=== PATIENT | male | born 1965 | race Caucasian/White ===

== ENCOUNTER 2017-01-23 17:30 | Inpatient (IN) ==
--- NOTE | 2017-01-23 18:00 | EKG Report ---
Test Performed on : 01/23/2017 5:53:23 PM Test Reason : withdrawal Blood Pressure : / mmHG Vent. Rate : 092 BPM Atrial Rate : 092 BPM P-R Int : 156 ms QRS Dur : 088 ms QT Int : 362 ms P-R-T Axes : 072 034 071 degrees QTc Int : 447 ms Normal sinus rhythm. Moderate voltage criteria for LVH, may be normal variant Borderline ECG When compared with ECG of 23-JAN-2017 17:47, (Unconfirmed) premature supraventricular complexes. are no longer present QRS duration has increased ST no longer depressed in Inferior leads ST elevation now present in Anterolateral leads Nonspecific T wave abnormality no longer evident in Inferior leads Nonspecific T wave abnormality no longer evident in Anterolateral leads Unconfirmed Result
--- NOTE | 2017-01-23 18:03 | ED EKG INTERP ---
This chart was entered by Rama Heredia Scribe, acting as scribe for Nirav Hawk MD. EKG Interpretation - EKG Time of EKG reading by physician:: 17:53 EKG Read and Signed by:: Nirav Hawk EKG Interpretation (*Must complete 3 of following elements*): Abnormal Rate: 92 (moderate voltage criteria for LVH, may be normal variant) Rhythm: NSR This chart was documented by the indicated scribe, (Rama Heredia Scribe) and accurately reflects the services I performed and decisions made by , Nirav Spann MD, as attested by the provider's signature.
[2017-01-23 18:04] LABS: MANUAL DIFF NEEDED? NO
[2017-01-23 18:09] LABS: BASO% 0.1 % (0.0-0.8); HEMATOCRIT 37.1 % (42.0-52.0); HEMOGLOBIN 13.8 g/dL (14.0-18.0); IMM GRAN# 0.08 X1000 (0.0-0.04); IMM GRAN% 0.8 % (0.0-0.5); LYMPH# 1.37 X1000 (1.2-3.4); MCH 33.2 PG (27-31); MCHC 37.2 g/dL (33-37); MCV 89.2 FL (81-99); MONO# 1.34 X1000 (0.11-0.59); MONO% 13.7 % (1.7-9.3); MPV 10.6 FL (7.4-10.4); NEUT% 70.4 % (42.2-75.2); PLT 160 X1000 (130-400); RBC 4.16 XMIL (4.7-6.1)
[2017-01-23] MEDS ORDERED: M.V.I.-12 10 ML, FOLIC ACID 1 MG, MAGNESIUM SULFATE 1 GM, THIAMINE 100 MG in NS 1,000 ML IV ONE (18:21)
[2017-01-23 18:40] LABS: AGAP 22; ALBUMIN 4.1 g/dL (3.5-5.0); ALKALINE PHOSPHATASE 56 U/L (32-122); AMYLASE 28 U/L (20-200); BUN 8 mg/dL (8-22); CALCIUM 9.2 mg/dL (8.8-10.2); CHLORIDE 74 mmol/L (98-107); COSMO 229; GOT 68 U/L (10-34); GPT 47 U/L (10-44); LIPASE 18 U/L (13-60); MAGNESIUM 1.5 mg/dL (1.5-2.7); POTASSIUM 3.3 mmol/L (3.5-5.1); SODIUM 114 mmol/L (136-145); TCO2 18 mmol/L (25-35); TOTAL PROTEIN 7.1 g/dL (6.3-8.3)
--- NOTE | 2017-01-23 19:29 | PROVIDER DOCUMENTATION ---
This chart was entered by Rama Heredia Scribe, acting as scribe for Nirav Hawk MD. [id number] Abuse/Overdose - General Chief Complaint: Withdrawals Stated Complaint: SEIZURES/WITHDRAWALS Time Seen by Provider: 01/23/17 17:59 Source: patient Allergies/Adverse Reactions: Allergies Allergy/AdvReac Type Severity Reaction Status Date / Time No Known Allergies Allergy Verified 09/08/16 15:55 Home Medications: Home Medication List Medication Instructions Recorded Confirmed Last Taken Type Folic Acid 1 mg PO DAILY #30 tablet 07/08/16 09/08/16 Unknown Rx Acetaminophen [Tylenol] 650 mg PO Q6H PRN PRN #0 tablet 09/11/16 Unknown Rx Lamotrigine [Lamictal] 200 mg PO BID #60 tablet 09/11/16 Unknown Rx Metoprolol Succinate E.r. [Toprol 25 mg PO DAILY #90 tablet 09/11/16 Unknown Rx Xl] - History of Present Illness-Drug/Alcohol Nature of Presenting Problem: pt is a 51 year old male who came to the ED with a cc of ETOH withdrawal. Pt would not speak to Dr. Hawk. Pt family reports that the pt normally drinks 12 beers a day, but has not drank since Thursday. pt family reports that he has been having seizures since Thursday. This episode of drinking or use began:: 2 days ago Severity: reports: moderate Situational problems related to:: reports: N/A Psychiatric Complaints: reports: denies symptoms - Substance Abuse Substance Use: reports: alcohol - Alcohol Abuse Usually drinks:: daily Usual alcohol intake amount?: 12 beers Review of Systems - Adult - REVIEW OF SYSTEMS - ADULT Constitutional: denies: chills, fever Eyes: reports: no symptoms reported Ears, Nose, Mouth & Throat: reports: no symptoms reported Cardiovascular: reports: no symptoms reported Respiratory: reports: no symptoms reported Gastrointestinal: denies: diarrhea, nausea, vomiting Genitourinary: reports: no symptoms reported Musculoskeletal: reports: no symptoms reported Integumentary: reports: no symptoms reported Neurological: reports: seizure. denies: ataxia, numbness Psychiatric: reports: alcohol/drug dependence. denies: depression, suicidal thoughts Endocrine: reports: no symptoms reported Hematologic/Lymphatic: reports: no symptoms reported Allergic/Immunologic: reports: no symptoms reported All Other Systems: Reviewed and Negative Past History - Adult - PAST MEDICAL HISTORY-ADULT Review of Records: reports: Nursing Assessment Review Major Childhood Illnesses: reports: denies history Cardiovascular: reports: CAD, HTN Respiratory: reports: denies history Gastrointestinal: reports: GERD Obstetrical/Gynecological: reports: denies history Genitourinary: reports: denies history Musculoskeletal: reports: denies history Neurological: reports: Seizures/Epilepsy Psychiatric: reports: depression, other (alcoholism) Endocrine/Immune: reports: denies history Other Conditions: reports: denies history - PRIOR SURGERIES/PROCEDURES Surgical/Procedure History: reports: other (ulcer) - PRIOR HOSPITALIZATIONS Prior Hospitalizations: reports: none - IMMUNIZATION STATUS Childhood Immunizations: See Nurse Assessment Flu Vaccine: See Nurse Assessment - FAMILY HISTORY Family History: reviewed, not pertinent Physical Exam-General - PHYSICAL EXAM-ADULT Initial Vital Signs Reviewed: Yes - CONSTITUTIONAL General Appearance: lethargic, other (was not responding to questions) - EYES Eyes: PERRL/EOMI - HEAD, EARS, NOSE, MOUTH & THROAT HENMT: normocephalic/atraumatic, moist mucous membranes - NECK Neck: non-tender - RESPIRATORY Respiratory: chest non-tender, lungs clear - CARDIOVASCULAR Cardiovascular: tachycardia - GASTROINTESTINAL (ABDOMEN) Abdominal Exam: normal bowel sounds, non tender - MUSCULOSKELETAL Back Exam: normal inspection - SKIN Integumentary: normal color, normal turgor - NEUROLOGIC Neurologic: grossly normal - PSYCHIATRIC Psych/Mental Status: disoriented x 3 Progress - PLAN OF CARE/RESULTS Progress/Plan/Lab Results: Vital Signs - 8 hr 01/23/17 17:36 Temperature 99 F Pulse Rate 95 H Respiratory Rate 19 Blood Pressure 167/90 O2 Sat by Pulse Oximetry 97 Laboratory Results - last 24 hr 01/23/17 01/23/17 01/23/17 17:58 17:58 17:58 WBC 9.81 RBC 4.16 L Hgb 13.8 L Hct 37.1 L MCV 89.2 MCH 33.2 H MCHC 37.2 H RDW Std Deviation 12.8 Plt Count 160 MPV 10.6 H Immature Gran % (Auto) 0.8 H Neut % (Auto) 70.4 Lymph % (Auto) 14.0 L [place] % (Auto) 13.7 H Eos % (Auto) 1.0 Baso % (Auto) 0.1 Immature Gran # (Auto) 0.08 H Neut # (Auto) 6.91 H Lymph # (Auto) 1.37 [place] # (Auto) 1.34 H Eos # (Auto) 0.10 Baso # (Auto) 0.01 Sodium 114 L* Potassium 3.3 L Chloride 74 L Carbon Dioxide 18 L Anion Gap 22 BUN 8 Creatinine 0.6 L Estimated GFR/1.73 m2 > 60 BUN/Creatinine Ratio 13 Glucose 91 Calculated Osmolality 229 Calcium 9.2 Magnesium 1.5 Total Bilirubin 2.20 H AST 68 H ALT 47 H Alkaline Phosphatase 56 Ammonia Total Protein 7.1 Albumin 4.1 Globulin 3.0 Albumin/Globulin Ratio 1.0 Amylase 28 Lipase 18 Plasma/Serum Ethyl Alc 01/23/17 18:35 WBC RBC Hgb Hct MCV MCH MCHC RDW Std Deviation Plt Count MPV Immature Gran % (Auto) Neut % (Auto) Lymph % (Auto) [place] % (Auto) Eos % (Auto) Baso % (Auto) Immature Gran # (Auto) Neut # (Auto) Lymph # (Auto) [place] # (Auto) Eos # (Auto) Baso # (Auto) Sodium Potassium Chloride Carbon Dioxide Anion Gap BUN Creatinine Estimated GFR/1.73 m2 BUN/Creatinine Ratio Glucose Calculated Osmolality Calcium Magnesium Total Bilirubin AST ALT Alkaline Phosphatase Ammonia 28 Total Protein Albumin Globulin Albumin/Globulin Ratio Amylase Lipase Plasma/Serum Ethyl Alc Orders Category Date Time Status Cardiac Monitoring DIRECTED Care 01/23/17 17:41 Active HEAD W/O CONTRAST [CT] Stat Exams 01/23/17 18:19 Taken ALCOHOL BLOOD Stat Lab 01/23/17 17:58 Completed AMMONIA [CHEM] Stat Lab 01/23/17 18:35 Completed AMYLASE [CHEM] Stat Lab 01/23/17 17:58 Completed CBC WITH DIFF [HEME] Stat Lab 01/23/17 17:58 Completed COMPREHENSIVE METABOLIC PANEL [CHEM] Stat Lab 01/23/17 17:58 Completed LAMICTAL [BENTLEY] Stat Lab 01/23/17 17:58 Received LIPASE [CHEM] Stat Lab 01/23/17 17:58 Completed MAGNESIUM [CHEM] Stat Lab 01/23/17 17:58 Completed UDS [URINE DRUG SCREEN PL] Stat Lab 01/23/17 19:26 Ordered ua [URINALYSIS PL W/POSS RFLX CULT] [URINALYSIS] Stat Lab 01/23/17 19:26 Ordered Mvi [M.v.i.-12] 10 ml Med 01/23/17 18:21 Discontinued Folic Acid 1 mg Magnesium Sulfate 1 gm Thiamine 100 mg 0.9% Sodium Chloride Inj [Ns] 1,000 ml IV NOW EKG [EKG] Stat Ther 01/23/17 17:45 Draft Result Diagrams: 01/23/17 17:58 01/23/17 17:58 - CT/MRI 1 CT Study: Head Impression: Normal Departure - Departure Date of Disposition Decision: 01/23/17 Time of Disposition Decision: 19:29 DIAGNOSIS: Hyponatremia, Alcoholism Altered mental status Qualifiers: Altered mental status type: disorientation Qualified Code(s): R41.0 - Disorientation, unspecified Disposition: ADMITTED INPATIENT 09 Certified Medical Emergency: Emergent Condition: Fair Referrals and Follow-Ups: None,PCP [Primary Care Provider] - - Critical Care Note This patient required my direct & personal management of CC.: No This chart was documented by the indicated scribe, (Rama Heredia Scribe) and accurately reflects the services I performed and decisions made by me, Nirav Spann MD, as attested by the provider's signature.
--- NOTE | 2017-01-23 19:29 | Diag Imaging Result Doc PS360 ---
HEAD W/O CONTRAST - 01/23/2017 INDICATION: ams TECHNIQUE: A CT dose reduction protocol was used. COMPARISON: 09/08/2016 FINDINGS: The ventricles and sulci are normal in size and contour. No intracranial mass or hemorrhage. The skull is intact. The sinuses mastoids and middle ears are clear. IMPRESSION: Negative exam. Electronically signed by Salsa Dunn 01/23/2017 7:27 PM
[2017-01-23 19:31] LABS: URINE CULTURE PL NEEDED? NO
[2017-01-23 19:35] LABS: BILIRUBIN URINE NEGATIVE (NEGATIVE); BLOOD URINE 4+ (NEGATIVE); CLARITY CLEAR (CLEAR); COLOR YELLOW; GLUCOSE URINE NEGATIVE (NEGATIVE); LEUKOCYTES URINE NEGATIVE (NEGATIVE); NITRITE URINE NEGATIVE (NEGATIVE); PROTEIN URINE NEGATIVE (NEGATIVE); SP GRAVITY URINE 1.005; URINE SOURCE CLEAN CATCH; UROBILINOGEN URINE NORMAL
[2017-01-23 19:36] LABS: URINE EPITHELIAL CELLS <10 /HPF (<10); URINE RBC <10 /HPF (<10); URINE WBC <10 /HPF (<10)
[2017-01-23 19:39] LABS: UR AMPHETAMINES QUAL NONE DETECTED (NONE DETECT); UR BARBITUATES QUAL PRESUMPTIVE POSITIVE (NONE DETECT); UR BENZODIAZEPIN QUAL NONE DETECTED (NONE DETECT); UR CANNABINOIDS QUAL NONE DETECTED (NONE DETECT); UR COCAINE QUAL NONE DETECTED (NONE DETECT); UR MDMA QUAL NONE DETECTED (NONE DETECT); UR METHADONE QUAL NONE DETECTED (NONE DETECT); UR METHAMPHETAMINE QUAL NONE DETECTED (NONE DETECT); UR OPIATES QUAL NONE DETECTED (NONE DETECT); UR OXYCODONE QUAL NONE DETECTED (NONE DETECT); UR PCP QUAL NONE DETECTED (NONE DETECT); UR TCA QUAL NONE DETECTED (NONE DETECT)
[2017-01-23] MEDS ORDERED: LOPRESSOR PO ONE (20:22)
[2017-01-23] MEDS: LIBRIUM PO SCH (22:25)
[2017-01-23] MEDS: NS 1,000 ML IV SCH (22:26)
[2017-01-23 23:22] LABS: URINE CULTURE PL NEEDED? NO
[2017-01-23 23:33] LABS: BILIRUBIN URINE NEGATIVE (NEGATIVE); BLOOD URINE 3+ (NEGATIVE); CLARITY CLEAR (CLEAR); COLOR YELLOW; GLUCOSE URINE NEGATIVE (NEGATIVE); LEUKOCYTES URINE NEGATIVE (NEGATIVE); NITRITE URINE NEGATIVE (NEGATIVE); PROTEIN URINE NEGATIVE (NEGATIVE); SP GRAVITY URINE 1.005; UROBILINOGEN URINE NORMAL
[2017-01-23 23:50] LABS: URINE EPITHELIAL CELLS <10 /HPF (<10); URINE RBC <10 /HPF (<10); URINE WBC <10 /HPF (<10)
[2017-01-23 23:51] LABS: URINE SOURCE CATH
[2017-01-24 02:01] LABS: AGAP 21; BUN 7 mg/dL (8-22); CALCIUM 8.8 mg/dL (8.8-10.2); CHLORIDE 85 mmol/L (98-107); COSMO 244; POTASSIUM 3.2 mmol/L (3.5-5.1); SODIUM 121 mmol/L (136-145); TCO2 15 mmol/L (25-35)
[2017-01-24] MEDS: LIBRIUM PO SCH ×3 (03:47→15:57)
[2017-01-24 07:39] LABS: AGAP 22; BUN 7 mg/dL (8-22); CHLORIDE 89 mmol/L (98-107); COSMO 259; SODIUM 130 mmol/L (136-145); TCO2 19 mmol/L (25-35)
[2017-01-24] MEDS: NS 1,000 ML IV SCH (09:02)
[2017-01-24] MEDS ORDERED: KLOR-CON PO ONE (09:25)
[2017-01-24] MEDS ORDERED: ATIVAN IV PRN (09:26)
[2017-01-24] MEDS ORDERED: APRESOLINE IV PRN (10:43)
--- NOTE | 2017-01-24 13:27 | HISTORY AND PHYSICAL ---
PRIMARY CARE PHYSICIAN: None. CHIEF COMPLAINT: "I am an alcoholic and been having seizures." HISTORY OF PRESENTING ILLNESS: This is a 51-year-old male who presents to [facility] ER with complaints of multiple seizures since Thursday of this week. States he is an alcoholic. The girlfriend states that he usually snaps back out of it after about 30 minutes after his seizures at this time he is the same. The patient is a poor historian. Slow to answer questions but is alert to self, place and event. Workup when he arrived showed a sodium of 114, potassium was 3.3, total bilirubin was 2.20, AST of 68, ALT of 47. A CT of the head in the ER was negative so he was admitted to the intensive care unit for further evaluation and treatment. PAST MEDICAL HISTORY: Of hypertension, seizures, alcoholism, and substance abuse that includes cocaine in his 20s. PAST SURGICAL HISTORY: None. FAMILY HISTORY: Of alcoholism. SOCIAL HISTORY: He lives with his girlfriend and is disabled and does not work due to his alcoholism. He smokes 1 cigar a day, marijuana occasionally and drinks approximately a half a case of beer if he has it and has done so daily for the past 3-1/2 years. ALLERGIES: No known drug allergies. HOME MEDICATIONS: It is noted by his family that they have been attempting to buy his medication of Lamictal but it became expensive and they could no longer bite at 200 mg p.o. b.i.d. so he has not been taking that at this time. LABORATORY DATA: Showed a white blood cell count of 9.81, hemoglobin 13.8, hematocrit 37.1, platelets 160,000. Sodium of 114, potassium 3.3, chloride 74, CO2 18, BUN of 8, creatinine 0.6, magnesium of 1.5, glucose 91, total bilirubin of 2.20, AST of 68, ALT 47. Ammonia level was 28, amylase 28, lipase 18. Urinalysis was negative. Urine drug screen was presumptive positive for barbiturate. Serum alcohol level showed none detected. Head CT was negative. EKG on arrival showed normal sinus rhythm at 92. REVIEW OF SYSTEMS: He denied any fever, chills, blurred vision, dizziness, chest pain, coughing, shortness of breath. He denied any abdominal pain, constipation, diarrhea, burning or hurting with urination. Is positive for seizures, generalized weakness. PHYSICAL EXAMINATION: VITAL SIGNS: On arrival, he had a temperature of 99 degrees, a pulse 95, respirations 19, blood pressure was 167/90. It did increase approximately 2 hours after arriving to 198/108. Currently 171/110. GENERAL: This is a 51-year-old male who looks older than his stated age lying in the bed, able to answer questions appropriately. HEENT: Normocephalic and atraumatic. Pupils are equal, round, reactive to light. Extraocular movements are intact. Neck is supple. Oropharynx and nares are clear. LUNGS: Clear to auscultation bilaterally with equal lung expansion and chest wall movement. HEART: With regular rate and rhythm. No murmurs, rubs, or gallops. ABDOMEN: Soft, nontender, nondistended. Bowel sounds are present x4 quadrants. EXTREMITIES: No clubbing, cyanosis, or edema. NEUROLOGICAL: Cranial nerves 2-12 are grossly intact. ASSESSMENT: 1. Hyponatremia. 2. Hypokalemia. 3. Ethanol abuse with withdrawal. 4. Accelerated hypertension. 5. Seizures. PLAN: He was placed in the intensive care unit. Placed on neuro checks q.4 hours for 24 hours. Telemetry. Regular diet. Placed on a banana bag of fluids daily, Librium 50 mg p.o. q.6, Ativan 1 mg IV q.4, normal saline at 100 mL an hour. He received supplementation in his potassium at 40 mEq x1 today, metoprolol 50 mg x1 was given in the emergency room. For now I am going to order because I feel like this hypertension is most likely related to his EtOH withdrawal will have some hydralazine 10 mg IV q.4 hours p.r.n. a systolic blood pressure greater than 190 and a diastolic greater than 100. It is noted that recheck of labs this morning showed that his sodium is up to 130 so we will recheck CBC, CMP in a.m. Dictated by DAYDAY Arthur for Ian Sheikh MD cc: DAYDAY Arthur MD
[2017-01-24] MEDS ORDERED: CATAPRES PO ONE (14:00)
[2017-01-24 15:19] VITALS: BP 136/77
[2017-01-24] MEDS ORDERED: M.V.I.-12 10 ML, FOLIC ACID 1 MG, MAGNESIUM SULFATE 1 GM, THIAMINE 100 MG in NS 1,000 ML IV SCH (19:00)
--- NOTE | 2017-01-26 06:45 | DISCHARGE SUMMARY ---
ADMISSION DATE: 01/23/2017 DISCHARGE DATE: 01/24/2017 PRIMARY CARE PHYSICIAN: None. ADMISSION DIAGNOSES: 1. Hyponatremia. 2. Hypokalemia. 3. Ethanol abuse with withdrawal. 4. Accelerated hypertension. 5. Seizures. DISCHARGE DIAGNOSES: 1. Hyponatremia, resolved. 2. Hypokalemia, improved. 3. Ethanol abuse with withdrawal. 4. Accelerated hypertension, improved. 5. Seizure. SUMMARY OF FINDINGS: This is a 51-year-old male, who presented with complaints of multiple seizure since Thursday of this week, stating that he was an alcoholic. Girlfriend stated that he usually snaps back after about 30 minutes of his seizures but this time he has not. He was noted to be a poor historian, slow to answer questions, but alert to self, place and event. His workup showed a sodium of 114, potassium of 3.3. Bilirubin was 2.20. AST 68, ALT 47. CT of the head in the ER was negative. He was initially admitted to intensive care unit. Placed on neuro checks q.4 hours. Given a banana bag of fluids. Placed on lithium and Ativan, normal saline at 100 mL an hour, and we supplemented his potassium with 40 mEq. His sodium increased to 130. His blood pressure was elevated. We gave him a one time dose of clonidine at 0.2 mg and this brought his blood pressure down to 136/77. It is felt that all of this is most likely related to his and ETOH abuse and it was felt that he could safely be discharged home. DISCHARGE MEDICATIONS: To continue his Lamictal 200 mg p.o. b.i.d. Obtain a primary care physician and follow up at that time. The patient was instructed on cessation of ETOH and he verbalized understanding. TIME SPENT: Thirty-five minute discharge. Dictated by DAYDAY Arthur for Ian Sheikh MD cc: DAYDAY Arthur MD
== END 2017-01-24 18:35 | disposition home or self-care (01) ==
LOC: P.ED 17:30 → P.MEDSURG 21:10 → SUATTDRO 21:10 → P.ICU 21:51
PROVIDERS: ATTEND Family Medicine

== ENCOUNTER 2019-05-18 15:17 | Inpatient (IN) ==
[2019-05-18] MEDS ORDERED: ATIVAN ONE (15:21)
[2019-05-18] MEDS ORDERED: ATIVAN IV ONE (15:28)
[2019-05-18] MEDS ORDERED: NS 1,000 ML IV ONE (15:30)
[2019-05-18] MEDS ORDERED: DUONEB (A & A) INH ONE (15:30)
[2019-05-18] MEDS ORDERED: ZOSYN 4.5 GM in NS 100 ML IV ONE (15:46)
[2019-05-18] MEDS ORDERED: VANCOMYCIN 1 GM/NS 1 GM/250 ML IVPB IV ONE ×2 (15:46→18:00)
[2019-05-18 16:00] LABS: BE -12.3 mmoll (-3.0-3.0); BLOOD TYPE ARTERIAL; HCO3-(ACT) 15.2 mmoll (20.0-26.0); METHB 1.2 % (0.0-1.5); O2(CT) 18.7 mL/dL (15.0-23.0); PCO2(98.6) 37 mmHg (35-45); PO2(98.6) 95 mmHg (60-100); SAMPLE BLOOD; SAO2 98.1 % (95.0-100.0); THB 14.2 g/dL (11.5-17.4); pH(98.6) 7.21 (7.35-7.45)
[2019-05-18 16:11] LABS: BASO# 0.03 X1000 (0.0-0.2); BASO% 0.5 % (0.0-0.8); EOS# 0.18 X1000 (0.0-0.7); EOS% 2.8 % (0.0-10.0); HEMATOCRIT 42.6 % (42.0-52.0); HEMOGLOBIN 13.9 g/dL (14.0-18.0); IMM GRAN# 0.15 X1000 (0.0-0.04); IMM GRAN% 2.3 % (0.0-0.5); LYMPH# 1.27 X1000 (1.2-3.4); LYMPH% 19.6 % (20.5-51.1); MCHC 32.6 g/dL (33-37); MCV 94.9 FL (81-99); MONO# 0.49 X1000 (0.11-0.59); MONO% 7.6 % (1.7-9.3); NEUT# 4.35 X1000 (1.4-6.5); NEUT% 67.2 % (42.2-75.2); PLT 174 X1000 (130-400); RBC 4.49 XMIL (4.7-6.1); RDW 13.7 % (11.5-14.5); WBC 6.47 X1000 (4.8-10.8)
--- NOTE | 2019-05-18 16:17 | Diag Imaging Result Doc PS360 ---
EXAM: CT HEAD/C-SPINE W/O CONTRAST 05/18/2019 HISTORY: AMS, Seizure TECHNIQUE: This exam was performed using automated exposure control, adjustment of mA or kV according to patient size, and/or use of iterative reconstruction technique. COMMENT: There is no evidence of mass effect, bleed, or abnormal extra-axial fluid collection. There is an endotracheal tube in the right nasal passage. Compared to 02/15/2019 the appearance of the brain has not changed significantly. Cervical spine: The facets are aligned. There is no evidence of prevertebral soft tissue swelling. There is posterior osteophyte formation at the C4-5 level. No evidence of fracture or subluxation is present. There may be spinal stenosis due to osteophyte formation at C4-5 as well as bilateral foraminal stenosis. IMPRESSION: No evidence of acute intracranial disease. Degenerative disc disease with spinal and foraminal stenosis at C4-5. Electronically signed by Flavio Kirby 05/18/2019 4:14 PM
--- NOTE | 2019-05-18 16:21 | EKG Report ---
Test Performed on : 05/18/2019 4:19:05 PM Test Reason : ams Blood Pressure : / mmHG Vent. Rate : 123 BPM Atrial Rate : 123 BPM P-R Int : 156 ms QRS Dur : 076 ms QT Int : 302 ms P-R-T Axes : 076 020 065 degrees QTc Int : 432 ms Sinus tachycardia. Anteroseptal infarct (cited on or before 27-AUG-2018) Abnormal ECG When compared with ECG of 27-AUG-2018 04:24, No significant change was found Unconfirmed Result
--- NOTE | 2019-05-18 16:22 | Diag Imaging Result Doc PS360 ---
EXAM: CHEST-1 VIEW 05/18/2019 HISTORY: ams TECHNIQUE: AP chest COMMENT: The inspiration is suboptimal. There is ill-defined opacity in the left lower lobe. The opacity which was previously present on 09/01/2018 and the right lower lobe has improved. IMPRESSION: Atelectasis versus pneumonia left lower lobe. Electronically signed by Flavio Kirby 05/18/2019 4:19 PM
[2019-05-18 16:26] LABS: ESTIMATED GFR > 60
[2019-05-18 16:29] LABS: ALLEN TEST NO; MODALITY NRB
[2019-05-18 16:30] LABS: AGAP 20; ALBUMIN 4.4 g/dL (3.5-5.0); ALKALINE PHOSPHATASE 82 U/L (32-122); BUN 11 mg/dL (8-22); CALCIUM 9.5 mg/dL (8.8-10.2); CHLORIDE 104 mmol/L (98-107); COSMO 272; CREATININE 1.1 mg/dL (0.7-1.2); GLUCOSE 118 mg/dL (70-104); GOT 36 U/L (10-34); GPT 36 U/L (10-44); POTASSIUM 4.1 mmol/L (3.5-5.1); SODIUM 136 mmol/L (136-145); TCO2 12 mmol/L (25-35); TOTAL PROTEIN 7.1 g/dL (6.3-8.3)
[2019-05-18 16:39] LABS: BILIRUBIN URINE NEGATIVE (NEGATIVE); BLOOD URINE 2+ (NEGATIVE); CLARITY CLEAR (CLEAR); COLOR YELLOW; GLUCOSE URINE NEGATIVE (NEGATIVE); KETONE URINE TRACE mg/dL (NEGATIVE); LEUKOCYTES URINE TRACE (NEGATIVE); NITRITE URINE NEGATIVE (NEGATIVE); PROTEIN URINE 2+(100 mg/dL) mg/dL (NEGATIVE); UROBILINOGEN URINE 1 mg/dL
[2019-05-18 16:47] LABS: URINE EPITHELIAL CELLS <10 /HPF (<10)
[2019-05-18 16:48] LABS: URINE BACTERIA 1+ /HFP; URINE CAST NONE SEEN /LPF; URINE CRYSTAL NONE SEEN /HPF; URINE SOURCE CATH; URINE YEAST NONE SEEN /HPF
--- NOTE | 2019-05-18 16:49 | PROVIDER DOCUMENTATION ---
This chart was entered by Binh Green Scribe, acting as scribe for Jolie Stoner MD. HPI-Neurological Disorder - General Chief Complaint: Seizure Stated Complaint: seizure Time Seen by Provider: 05/18/19 15:27 Source: patient, EMS Unable to obtain history due to:: altered Allergies/Adverse Reactions: Patient Allergies Allergy/AdvReac Type Severity Reaction Status Date / Time No Known Allergies Allergy Verified 10/29/17 23:48 Home Medications: Home Medication List Medication Instructions Recorded Confirmed Last Taken Type Unobtainable [Home Meds 05/18/19 05/18/19 Unknown History Unobtainable] - History of Present Illness-Neuro Nature of Presenting Problem: Pt is a 54 yom who presents to the ED via EMS with a CC of seizure activity. EMS reports family called EMS after pt was found unresponsive with seizure activity. EMS reports the pt was actively seizing upon arrival to the scene. EMS reports an approximate 5 seizures prior to arrival to the ED. The HPI, ROS, and physical exam was limited due to pt's condition - unresponsive. Upon examination the pt had 2 mm pupils with a left, upward gaze and rhonchi, coarse breath sounds on the left side. Severity: reports: moderate Onset/Duration: reports: just prior to arrival Timing: reports: still present Context: reports: found unresponsive by family, seizure activity Character of Altered Mental Status: reports: unresponsive, seizure activity Character of Deficits: reports: new weakness, altered sensation Gait Baseline: walks without assistance Similar Symptoms Previously?: No Recently seen or treated by another doctor?: No - Seizure First time to have a seizure?: No Witnessed seizure?: Yes How many seizure episodes?: 5 Episode details: reports: unknown duration Episode Frequency: occasional episodes Status Epilepticus: Yes Character of Seizure: reports: lost consciousness, generalized shaking all over Review of Systems - Adult - REVIEW OF SYSTEMS - ADULT ROS:: unobtainable per condition Constitutional: reports: see HPI Neurological: reports: see HPI, seizure Past History - Adult - PAST MEDICAL HISTORY-ADULT Review of Records: reports: Old Records Reviewed, Nursing Assessment Review, Medications Reviewed, Social history reviewed & non-contributory. Major Childhood Illnesses: reports: denies history Cardiovascular: reports: CAD, HTN Respiratory: reports: denies history Gastrointestinal: reports: GERD Obstetrical/Gynecological: reports: denies history Genitourinary: reports: denies history Musculoskeletal: reports: denies history Neurological: reports: Seizures/Epilepsy Psychiatric: reports: depression, other (alcoholism) Endocrine/Immune: reports: denies history, other (hyponatremia) Other Conditions: reports: denies history Additional History: alcohol abuse - PRIOR SURGERIES/PROCEDURES Surgical/Procedure History: reports: reviewed, not pertinent, other (ulcer) - PRIOR HOSPITALIZATIONS Prior Hospitalizations: reports: none - IMMUNIZATION STATUS Childhood Immunizations: See Nurse Assessment Flu Vaccine: See Nurse Assessment - FAMILY HISTORY Family History: reviewed, not pertinent - SOCIAL HISTORY Smoking: cigarettes, greater than 1 pack/day Substance Use: alcohol Alcohol Use Frequency: every day Physical Exam- Neurological - Physical Exam-Neuro Exam Limited by: Pt's condition - unresponsive Initial Vital Signs Reviewed: Yes General Appearance: other (Exam was limited due to pt's condition - unresponsive) Eye Exam: bilateral eye: abnormal pupil HENMT: other (Exam was limited due to pt's condition - unresponsive) Head Injury: other (Exam was limited due to pt's condition - unresponsive) Neck: other (Exam was limited due to pt's condition - unresponsive) Respiratory: rhonchi (Left sided), other (Exam was limited due to pt's condition - unresponsive) Cardiovascular: other (Exam was limited due to pt's condition - unresponsive) Abdominal Exam: other (Exam was limited due to pt's condition - unresponsive) Extremity: other (Exam was limited due to pt's condition - unresponsive) certified coding specialist Exam: other (Exam was limited due to pt's condition - unresponsive) Coordination/Gait: other (Exam was limited due to pt's condition - unresponsive) Motor/Sensory: other (Exam was limited due to pt's condition - unresponsive) Neurologic: other (Exam was limited due to pt's condition - unresponsive) Integumentary: other (Exam was limited due to pt's condition - unresponsive) Psych/Mental Status: other (Exam was limited due to pt's condition - unr esponsive) - Glascow Coma Scale Best Eye Response: (1) no response Best Verbal Response: (1) no verbal response Best Motor Response: (1) no motor response Total Glascow Score: 3 Progress - PLAN OF CARE/RESULTS Progress/Plan/Lab Results: Vital Signs - 8 hr 05/18/19 15:22 05/18/19 15:44 05/18/19 16:41 Temperature 97.9 F Pulse Rate 120 H 123 H 118 H Respiratory Rate 19 22 20 Blood Pressure 109/72 144/85 O2 Sat by Pulse Oximetry 93 L 91 L 97 Laboratory Results - last 24 hr 05/18/19 05/18/19 05/18/19 15:38 15:40 15:50 WBC RBC Hgb Hct MCV MCH MCHC RDW Std Deviation Plt Count MPV Immature Gran % (Auto) Neut % (Auto) Lymph % (Auto) [place] % (Auto) Eos % (Auto) Baso % (Auto) Immature Gran # (Auto) Neut # (Auto) Lymph # (Auto) [place] # (Auto) Eos # (Auto) Baso # (Auto) Specimen Type ARTERIAL Sample Site L BRACHIAL pH 7.21 L pCO2 37 pO2 95 HCO3 15.2 L Base Excess -12.3 L Oxyhemoglobin 93.0 L ABG O2 Sat (Calculated) 18.7 ABG O2 Saturation 98.1 ABG Carboxyhemoglobin 4.10 H ABG Methemoglobin 1.2 Dandy Test NO A-a O2 Difference 572.0 Total Hemoglobin 14.2 Lactate 8.10 H* Liter Flow 12.0 Blood Gas Modality NRB FiO2 % 100.0 Sodium Potassium Chloride Carbon Dioxide Anion Gap BUN Creatinine Estimated GFR/1.73 m2 BUN/Creatinine Ratio Glucose Calculated Osmolality Calcium Magnesium Total Bilirubin AST ALT Alkaline Phosphatase Creatine Kinase 309 H Troponin T < 0.010 Total Protein Albumin Globulin Albumin/Globulin Ratio Plasma Lactate Urine Color Urine Clarity Urine pH Ur Specific [place] Urine Protein Urine Ketones Urine Blood Urine Nitrite Urine Bilirubin Urine Urobilinogen Urine WBC Urine Glucose 05/18/19 05/18/19 05/18/19 15:50 15:50 15:50 WBC 6.47 RBC 4.49 L Hgb 13.9 L Hct 42.6 MCV 94.9 MCH 31.0 MCHC 32.6 L RDW Std Deviation 13.7 Plt Count 174 MPV 11.0 H Immature Gran % (Auto) 2.3 H Neut % (Auto) 67.2 Lymph % (Auto) 19.6 L [place] % (Auto) 7.6 Eos % (Auto) 2.8 Baso % (Auto) 0.5 Immature Gran # (Auto) 0.15 H Neut # (Auto) 4.35 Lymph # (Auto) 1.27 [place] # (Auto) 0.49 Eos # (Auto) 0.18 Baso # (Auto) 0.03 Specimen Type Sample Site pH pCO2 pO2 HCO3 Base Excess Oxyhemoglobin ABG O2 Sat (Calculated) ABG O2 Saturation ABG Carboxyhemoglobin ABG Methemoglobin Dandy Test A-a O2 Difference Total Hemoglobin Lactate Liter Flow Blood Gas Modality FiO2 % Sodium 136 Potassium 4.1 Chloride 104 Carbon Dioxide 12 L Anion Gap 20 BUN 11 Creatinine 1.1 Estimated GFR/1.73 m2 > 60 BUN/Creatinine Ratio 10 Glucose 118 H Calculated Osmolality 272 Calcium 9.5 Magnesium Total Bilirubin 0.20 AST 36 H ALT 36 Alkaline Phosphatase 82 Creatine Kinase Troponin T Total Protein 7.1 Albumin 4.4 Globulin 3.0 Albumin/Globulin Ratio 2.0 Plasma Lactate 9.4 H* Urine Color Urine Clarity Urine pH Ur Specific [place] Urine Protein Urine Ketones Urine Blood Urine Nitrite Urine Bilirubin Urine Urobilinogen Urine WBC Urine Glucose 05/18/19 05/18/19 15:50 16:25 WBC RBC Hgb Hct MCV MCH MCHC RDW Std Deviation Plt Count MPV Immature Gran % (Auto) Neut % (Auto) Lymph % (Auto) [place] % (Auto) Eos % (Auto) Baso % (Auto) Immature Gran # (Auto) Neut # (Auto) Lymph # (Auto) [place] # (Auto) Eos # (Auto) Baso # (Auto) Specimen Type Sample Site pH pCO2 pO2 HCO3 Base Excess Oxyhemoglobin ABG O2 Sat (Calculated) ABG O2 Saturation ABG Carboxyhemoglobin ABG Methemoglobin Dandy Test A-a O2 Difference Total Hemoglobin Lactate Liter Flow Blood Gas Modality FiO2 % Sodium Potassium Chloride Carbon Dioxide Anion Gap BUN Creatinine Estimated GFR/1.73 m2 BUN/Creatinine Ratio Glucose Calculated Osmolality Calcium Magnesium 2.3 Total Bilirubin AST ALT Alkaline Phosphatase Creatine Kinase Troponin T Total Protein Albumin Globulin Albumin/Globulin Ratio Plasma Lactate Urine Color YELLOW Urine Clarity CLEAR Urine pH 6.0 Ur Specific [place] 1.020 Urine Protein 2+(100 mg/dL) A Urine Ketones TRACE Urine Blood 2+ A Urine Nitrite NEGATIVE Urine Bilirubin NEGATIVE Urine Urobilinogen 1 Urine WBC TRACE A Urine Glucose NEGATIVE Orders Category Date Time Status Aspiration Precautions DIRECTED Care 05/18/19 15:31 Active Nursing- Obtain EKG ONCE Care 05/18/19 15:28 Active NPO Diet 05/18/19 15:31 Active CHEST-1 VIEW [RAD] Stat Exams 05/18/19 15:[address] HEAD/C-SPINE W/O CONTRAST [CT] Stat Exams 05/18/19 15:27 Completed ABG [RESP] Routine Lab 05/18/19 15:38 Completed BLOOD CULTURE [BLDCUL] Stat Lab 05/18/19 16:00 Ordered CBC WITH ELECTRONIC DIFF [HEME] Stat Lab 05/18/19 15:50 Completed CK PROFILE [SP CHEM] Stat Lab 05/18/19 15:40 Results COMPREHENSIVE METABOLIC PANEL [CHEM] Stat Lab 05/18/19 15:50 Completed LACTATE, PLASMA [CHEM] Stat Lab 05/18/19 15:50 Completed LAMICTAL [BENTLEY] Stat Lab 05/18/19 15:50 Received MAGNESIUM [CHEM] Stat Lab 05/18/19 15:50 Completed TROPONIN T Stat Lab 05/18/19 15:50 Completed UA NIMS W/REFLEX CULT PL [URINALYSIS] Stat Lab 05/18/19 16:25 Results [address]INE DRUG SCREEN [address] Stat Lab 05/18/19 16:25 Received 0.9% Sodium Chloride Inj [Ns] 1,000 ml Med 05/18/19 15:30 Discontinued IV 999 mls/hr Albuterol 2.5MG/Ipratrop 0.5MG [Duoneb (A & A)] Med 05/18/19 15:30 Discontinued 3 ml INH NOW ONE Lorazepam [Ativan] Med 05/18/19 15:21 Discontinued 2 mg .ROUTE .STK-MED ONE Lorazepam [Ativan] Med 05/18/19 15:28 Discontinued 2 mg IV NOW ONE Piperacillin/Tazobactam [Zosyn] 4.5 gm Med 05/18/19 15:46 Discontinued 0.9% Sodium Chloride Inj [Ns] 100 ml IV NOW Vancomycin 1 gm/Ns Med 05/18/19 15:46 Discontinued 1 gm in 250 ml IV NOW Aerosol Treatments Routine Oth 05/18/19 15:30 Active Aerosol Treatments Stat Oth 05/18/19 15:30 Active EKG [EKG] Stat Ther 05/18/19 15:28 Draft Result Diagrams: 05/18/19 15:50 05/18/19 15:50 - EKG 1 Time of EKG reading by physician:: 16:20 EKG Read and Signed by:: Jolie Stoner EKG Interpretation (*Must complete 3 of following elements*): Abnormal (Sinus tachycardia; Anteroseptal infarct, age undetermined) Rate: 123 Rhythm: Sinus tachycardia [place]: normal QRS: normal [place] Interval: normal ST Wave: normal - XRAY 1 XRAY: Bilateral XRAY Study: Chest Impression: See EMR Report (EXAM: CHEST-1 VIEW 05/18/2019 HISTORY: ams TECHNIQUE: AP chest COMMENT: The inspiration is suboptimal. There is ill- defined opacity in the left lower lobe. The opacity which was previously present on 09/01/2018 and the right lower lobe has improved. IMPRESSION: Atelectasis versus pneumonia left lower lobe. Electronically signed by Flavio Kirby 05/18/2019 4:19 PM 05/18/19 161 Interpreting Physician: Flavio Kirby MD Dictated Date/Time: 05/18/191618 cc: Jolie Stoner MD;) - CT/MRI 1 CT Study: Cervical Spine, Head Impression: See EMR Report (EXAM: CT HEAD/C-SPINE W/O CONTRAST 05/18/2019 HISTORY: AMS, Seizure TECHNIQUE: This exam was performed using automated exposure control, adjustment of mA or kV according to patient size, and/or use of iterative reconstruction technique. COMMENT: There is no evidence of mass effect, bleed, or abnormal extra-axial fluid collection. There is an endotracheal tube in the right nasal passage. Compared to 02/15/2019 the appearance of the brain has not changed significantly. Cervical spine: The facets are aligned. There is no evidence of prevertebral soft tissue swelling. There is posterior osteophyte formation at the C4-5 level. No evidence of fracture or subluxation is present. There may be spinal stenosis due to osteophyte formation at C4-5 as well as bilateral foraminal stenosis. IMPRESSION: No evidence of acute intracranial disease. Degenerative disc disease with spinal and foraminal stenosis at C4-5. Electronically signed by Flavio Kirby 05/18/2019 4:14 PM 05/18/19 1619 Interpreting Physician: Flavio Quezada MD Dictated Date/Time: 05/18/191611 cc: Jolie Stoner MD;) - CONSULTS/PCP/HOSPITALIST Notification #1 *Consult/PCP/Hospitalist*: paged Dr Bartow Time Discussed: 16:45 Consult Disposition: Will see in ED Departure - Departure Date of Disposition Decision: 05/18/19 Certified Medical Emergency: Emergent Additional Instructions: ED Follow Up Instructions: You have been treated by a care provider in the Emergency Department. These instructions are being provided to you so you can have an understanding of how to care for yourself upon discharge. Upon discharge from the Emergency Department, you are responsible for making arrangements for follow-up care by a physician of your choice. Take all prescribed medications as directed. Return to the Emergency Department immediately for any new or worsening symptoms. You may call the Physician Referral phone number at [phone] to obtain a list of Physicians who are taking new patients. Referrals and Follow-Ups: None,PCP [Primary Care Provider] - - Critical Care Note This patient required my direct & personal management of CC.: No Attestation - Physician/ GILDARDO Attestation Patient care was provided by Advanced Practice Provider:: No The physician spent face to face time with patient:: Yes Advanced Practice Provider documentation review:: Supervising physician onsite and consulted in the evaluation and care of this patient. The physician did have a face to face encounter with the patient. - NIH Stroke Scale NIH Type: Initial Evaluation This chart was documented by the indicated scribe, (Binh Green, Abel) and accurately reflects the services I performed and decisions made by me, Jolie Stoner MD, as attested by the provider's signature.
[2019-05-18 16:55] LABS: UR AMPHETAMINES QUAL NONE DETECTED (NONE DETECT); UR BARBITUATES QUAL NONE DETECTED (NONE DETECT); UR BENZODIAZEPIN QUAL NONE DETECTED (NONE DETECT); UR CANNABINOIDS QUAL NONE DETECTED (NONE DETECT); UR COCAINE QUAL NONE DETECTED (NONE DETECT); UR METHADONE QUAL NONE DETECTED (NONE DETECT); UR METHAMPHETAMINE QUAL NONE DETECTED (NONE DETECT); UR OPIATES QUAL NONE DETECTED (NONE DETECT); UR OXYCODONE QUAL NONE DETECTED (NONE DETECT); UR PCP QUAL NONE DETECTED (NONE DETECT); UR PROPOXYPHENE QUAL NONE DETECTED (NONE DETECT); UR TCA QUAL NONE DETECTED (NONE DETECT)
[2019-05-18 17:00] LABS: CK INDEX 1.3 (0.0-2.5); CK-MB 4.06 ng/mL (0.0-5.0)
[2019-05-18] MEDS ORDERED: KEPPRA 1,000 MG in NS 100 ML IV ONE (17:00)
[2019-05-18 17:12] LABS: INR 0.96; PROTIME 13.3 Seconds (11.0-16.0)
[2019-05-18 17:13] LABS: PTT 27.4 Seconds (22.3-41.8)
[2019-05-18] MEDS ORDERED: VANCOMYCIN IV PER PHARMACY MISC SCH (17:30)
[2019-05-18] MEDS ORDERED: DUONEB (A & A) INH PRN (17:32)
[2019-05-18] MEDS ORDERED: DIPRIVAN 1% 1,000 MG/100 ML BOTTLE IV SCH (17:45)
[2019-05-18] MEDS ORDERED: ATIVAN IV PRN (18:07)
[2019-05-18] MEDS: M.V.I.-12 10 ML, FOLIC ACID 1 MG, MAGNESIUM SULFATE 1 GM, THIAMINE 100 MG in NS 1,000 ML IV SCH (18:51)
--- NOTE | 2019-05-18 21:27 | HISTORY AND PHYSICAL ---
CHIEF COMPLAINT: Seizure. HISTORY OF PRESENT ILLNESS: This is a 51-year-old gentleman who presented to the emergency room via EMS after the family found him unresponsive with seizure activity. EMS reported that the patient was actively seizing on their arrival and continued in route to the ED, which they reported approximately 5 seizures prior to arrival to the ED. On arrival, the patient was documented to have 2 mm pupils with a left upper gaze with rhonchi noted throughout his lungs. At the time of my exam, the patient is unresponsive. He does withdraw to pain. He does move. He is maintaining his airway with non-rebreather mask in place. There is no family present so history is taken from the chart and the ER record. PAST MEDICAL HISTORY: Seizure activity, alcohol abuse, hypertension, depression. PAST SURGICAL HISTORY: Unknown. SOCIAL HISTORY: Documented alcohol and tobacco use. ALLERGIES: No known documented allergies. HOME MEDICATIONS: No documented medications. REVIEW OF SYSTEMS: Unable to obtain due to patient's being unresponsive. PHYSICAL EXAMINATION: GENERAL: This is a 54-year-old gentleman who is sitting up on the stretcher in the emergency room in no distress. VITAL SIGNS: Blood pressure is 144/85 with a heart rate of 106, respirations are 21, temperature is 97.9 degrees with a non-rebreather in place with saturations 97%. EYES: Pupils are 2 mm. He does have a left upper gaze. Sclerae are anicteric. HEENT: Head is normocephalic, atraumatic. Mucous membranes are moist. NECK: Supple. Trachea midline. No JVD. CARDIOVASCULAR: Regular rate and rhythm. He is tachycardic. S1 and S2 appreciated. SKIN: Pale, warm and dry. EXTREMITIES: Peripheral pulses are palpable x4 extremities. PULMONARY: Breath sounds with wheezes and rhonchi scattered throughout. Chest rises and falls symmetrically with respiration. GASTROINTESTINAL: Abdomen is soft, nondistended, with bowel sounds in all 4 quadrants. NEUROLOGIC: The patient withdraws to pain. He is maintaining his airway. Skin is warm and dry. LABS: WBC is 6.4 with hemoglobin 13.9, hematocrit 42.6, and platelets of 174,000. Sodium 136, potassium 4.1, BUN 11, creatinine 1.1 with a glucose of 118. Troponin is less than 0.010, with a lactate of 9.4. Urinalysis has 10 to 20 microscopic red blood cells and white blood cells with less than 10 epithelial cells, and 1+ bacteria. This is a cath specimen. Urine drug screen reveals none detected. Blood cultures and urine culture are pending. Chest x-ray reveals atelectasis versus pneumonia left lower lobe. CT of the head and C-spine: No evidence of acute intracranial disease. Degenerative disk disease with spinal and foraminal stenosis at C4-C5 level. ASSESSMENT AND PLAN: 1. Seizure. 2. Unresponsive. 3. Aspiration pneumonia. 4. History of alcohol use and abuse. PLAN: Admit to ICU for close monitoring, neuro checks q.1 hour. monitor for any alcohol withdrawal. Blood cultures were obtained in the emergency room. order a sputum culture. Continue vancomycin and Zosyn for antibiotic coverage and further antibiotics will be culture driven. DuoNeb q.4 hours with q.2 hours p.r.n. CBC, CMP, magnesium in the morning. nothing by mouth. identify his home medications and continue as appropriate. Ativan 1 mg IV p.r.n. seizure. For deep vein thrombosis prophylaxis sequential compression devices. Holding off on any anticoagulation as we are unsure of history of varices and of any injury prior to this. gastrointestinal prophylaxis, Protonix. Plan was discussed with Dr sheikh Further treatments pending hospital course. Dictated by DAYDAY Mcleod for Ian Sheikh MD cc: DAYDAY Mcleod MD Omar J. Sosa-Chirinos, MD [facility]
[2019-05-18] MEDS: NS 1,000 ML IV SCH (21:48)
[2019-05-18] MEDS: ZOSYN 3.375 GM in NS 50 ML IV SCH (22:09)
[2019-05-18] MEDS: FLAGYL 500 MG/NS 500 MG/100 ML IVPB IV SCH (22:09)
[2019-05-18] MEDS: DUONEB (A & A) INH SCH ×2 (22:33→23:42)
--- NOTE | 2019-05-18 23:02 | HISTORY AND PHYSICAL ---
HISTORY OF PRESENT ILLNESS: The patient has a longstanding history of seizures. He had not apparently been having seizures recently; however, he did have 4 or 5 seizures today, according to his mom. The patient stopped drinking approximately 3 months ago, and mom states he has not drunk in the past 3 months. PHYSICAL EXAMINATION: Currently the patient is somnolent and does not answer questions nor follow commands. He does appear to be postictal. PLAN: We are going to admit him to the hospital, place in the ICU and follow. The patient does appear to possibly have a UTI. We are going to follow. I am going to place him on antibiotics for probable aspiration during seizures and will follow. cc: MD Ketan Calvin MD
[2019-05-19] MEDS: FLAGYL 500 MG/NS 500 MG/100 ML IVPB IV SCH ×4 (02:06→19:50)
[2019-05-19] MEDS: ZOSYN 3.375 GM in NS 50 ML IV SCH ×3 (04:00→15:28)
[2019-05-19] MEDS: DUONEB (A & A) INH SCH ×6 (04:23→23:59)
[2019-05-19 07:47] LABS: BASO# 0.02 X1000 (0.0-0.2); BASO% 0.2 % (0.0-0.8); EOS% 1.2 % (0.0-10.0); HEMATOCRIT 39.9 % (42.0-52.0); HEMOGLOBIN 13.2 g/dL (14.0-18.0); IMM GRAN# 0.02 X1000 (0.0-0.04); IMM GRAN% 0.2 % (0.0-0.5); LYMPH# 1.31 X1000 (1.2-3.4); LYMPH% 15.5 % (20.5-51.1); MCH 30.8 PG (27-31); MCHC 33.1 g/dL (33-37); MONO# 1.03 X1000 (0.11-0.59); MONO% 12.2 % (1.7-9.3); MPV 10.7 FL (7.4-10.4); NEUT# 5.96 X1000 (1.4-6.5); NEUT% 70.7 % (42.2-75.2); PLT 160 X1000 (130-400); RBC 4.29 XMIL (4.7-6.1); RDW 13.9 % (11.5-14.5); WBC 8.44 X1000 (4.8-10.8)
--- NOTE | 2019-05-19 07:48 | Diag Imaging Result Doc PS360 ---
EXAM: CHEST-1 VIEW - 05/19/2019 HISTORY: pneumonia TECHNIQUE: One view chest COMPARISON: 05/18/2017 FINDINGS: Heart size is normal. There are artifacts from wires, tubing, and metallic fasteners over the chest. Inspiration is deeper compared to prior. The lungs appear essentially clear. There is no pleural effusion or pneumothorax identified. There are old rib fracture noted. IMPRESSION: Deeper inspiration compared to prior. No evidence of acute disease. Electronically signed by Clyde Montgomery 05/19/2019 7:46 AM
[2019-05-19 08:20] LABS: AGAP 8; ALKALINE PHOSPHATASE 55 U/L (32-122); BUN 5 mg/dL (8-22); CHLORIDE 107 mmol/L (98-107); COSMO 272; CREATININE 0.8 mg/dL (0.7-1.2); ESTIMATED GFR > 60; GLUCOSE 107 mg/dL (70-104); GOT 37 U/L (10-34); GPT 29 U/L (10-44); POTASSIUM 4.2 mmol/L (3.5-5.1); SODIUM 137 mmol/L (136-145); TCO2 22 mmol/L (25-35); TOTAL PROTEIN 6.7 g/dL (6.3-8.3)
[2019-05-19] MEDS: NS 1,000 ML IV SCH (08:47)
[2019-05-19] MEDS: VANCOMYCIN 1,600 MG in NS 250 ML IV SCH ×2 (09:56→20:55)
[2019-05-19] MEDS: M.V.I.-12 10 ML, FOLIC ACID 1 MG, MAGNESIUM SULFATE 1 GM, THIAMINE 100 MG in NS 1,000 ML IV SCH (18:50)
[2019-05-19] MEDS ORDERED: LAMICTAL PO SCH (21:00)
[2019-05-20] MEDS: ZOSYN 3.375 GM in NS 50 ML IV SCH ×2 (00:16→06:18)
--- NOTE | 2019-05-20 00:39 | PROGRESS NOTE ---
DATE: 05/19/2019 SUBJECTIVE: Patient notes that he is feeling a lot better. Denies any fevers. Is having lots of muscle aches. Denies any chills. PHYSICAL EXAMINATION: Vital Signs: Temperature 98.6 degrees, pulse 96, respiratory rate 18, BP 151/104. General: Patient is awake, alert. He is in no respiratory distress. HEENT: Normocephalic. Neck: Supple. Cardiovascular: Regular rate. Chest: Clear. Abdomen: Soft. Extremities: Moves all extremities. Neurologic: No changes. ASSESSMENT: 1. Seizures with increased frequency. 2. Likely aspiration pneumonia. 3. History of alcohol use and abuse although has been sober per his family. PLAN: We are going to continue patient in the hospital. Restart his home medications. Follow his seizures. Check urine and blood cultures as well as x-ray in the morning. If things are better, hopefully he can discharge home at that point. cc: Ian Sheikh MD
[2019-05-20] MEDS: FLAGYL 500 MG/NS 500 MG/100 ML IVPB IV SCH (02:13)
[2019-05-20 05:12] LABS: BASO# 0.02 X1000 (0.0-0.2); BASO% 0.3 % (0.0-0.8); EOS# 0.13 X1000 (0.0-0.7); EOS% 1.7 % (0.0-10.0); HEMATOCRIT 42.7 % (42.0-52.0); HEMOGLOBIN 13.9 g/dL (14.0-18.0); IMM GRAN# 0.02 X1000 (0.0-0.04); IMM GRAN% 0.3 % (0.0-0.5); LYMPH# 1.51 X1000 (1.2-3.4); LYMPH% 20.3 % (20.5-51.1); MCH 30.2 PG (27-31); MCHC 32.6 g/dL (33-37); MCV 92.6 FL (81-99); MONO# 0.97 X1000 (0.11-0.59); MONO% 13.1 % (1.7-9.3); NEUT# 4.78 X1000 (1.4-6.5); NEUT% 64.3 % (42.2-75.2); PLT 163 X1000 (130-400); RBC 4.61 XMIL (4.7-6.1); RDW 13.8 % (11.5-14.5); WBC 7.43 X1000 (4.8-10.8)
[2019-05-20] MEDS: DUONEB (A & A) INH SCH ×2 (05:14→08:18)
[2019-05-20] MEDS: NS 1,000 ML IV SCH (09:17)
[2019-05-20 09:46] VITALS: BP 190/97
--- NOTE | 2019-05-20 21:09 | DISCHARGE SUMMARY ---
ADMISSION DATE: 05/18/2019 DISCHARGE DATE: 05/20/2019 DIAGNOSES: 1. Seizures. 2. Unresponsive resolved. 3. Aspiration pneumonia. 4. History of alcohol use and abuse, although the patient has been sober per his family report. DIAGNOSTICS: 1. CT of the head and cervical spine. No evidence of acute intracranial disease. Degenerative disk disease with spinal and foraminal stenosis at C4-C5. 2. Chest x-ray revealed atelectasis versus pneumonia left lower lobe. 3. Repeat chest x-ray 05/19/2019 deeper inspiration. No evidence of acute disease. Heart size is normal. Lungs appear essentially clear. 4. Microbiology. Blood cultures x2 revealed no growth after 48 hours. 5. Urine culture reveals no growth. HOSPITAL COURSE: Mr. Ross presented to the emergency room after having witnessed seizure activity as he was postictal. He was initially monitored in ICU and then able to move out to the floor. Thankfully he has had no more further seizure activity. It was felt that he could have aspiration pneumonia. He was given vancomycin, Zosyn and Flagyl. He has remained afebrile with white count within normal limits. Blood cultures and urine culture were negative. Thankfully he is ready for discharge. DISCHARGE PHYSICAL EXAM: Vital signs: Blood pressure is 167/90 with a heart rate of 94, respirations are 18, temperature 98.3 degrees oral with room air saturations 100%. Cardiovascular: Regular rate and rhythm. S1 and S2 appreciated. Pulmonary: Breath sounds are clear with no increased work of breathing noted. Chest rises and falls symmetrically with respiration. Chest wall is nontender to palpation. Gastrointestinal: Abdomen is soft, nontender, nondistended with bowel sounds in all 4 quadrants. Neurologic: He is alert, oriented x3. DISCHARGE MEDICATIONS: 1. Lamictal 200 mg p.o. b.i.d. 2. Clindamycin 300 mg p.o. t.i.d. FOLLOWUP: He needs to follow up with his primary care physician in 1 to 2 weeks sooner if needed. He was given the number the physician's referral line if needed. He has been instructed to call to be seen sooner, return to the ER for any recurring seizure activity, any syncope, dizziness, chest pain, palpitations, temperature greater than 101, increasing cough, shortness of breath, PND, orthopnea, any nausea, vomiting, diarrhea, constipation, black or bloody vomitus or stools or for any questions or concerns that he may have. He is being discharged home in stable condition with family members. TIME SPENT: Greater than 30 minutes. Dictated by DAYDAY Mcleod for Ian Sheikh MD cc: DAYDAY Mcleod MD [facility]
--- NOTE | 2019-05-21 04:28 | DISCHARGE SUMMARY ---
ADMISSION DATE: 05/18/2019 DISCHARGE DATE: 05/20/2019 DISCHARGE DIAGNOSIS: 1. Seizure. 2. Medical noncompliance. Patient apparently had stopped his seizure medications. 3. Metabolic encephalopathy secondary to seizure, resolved. 4. Aspiration pneumonia, stable. 5. History of alcohol abuse. Patient has [*]in 3 months. 6. Hypertension. CONSULTATIONS: None. PROCEDURES: None. BRIEF HOSPITAL COURSE: The patient is a 51-year-old male who presented to [facility] secondary to multiple seizures and a prolonged postictal period. He was placed in the ICU as his blood pressure was markedly elevated at 151/104. Thankfully, blood pressures improved. On discharge, they are stable in the 120s-130s systolic. Once he began getting back to normal, he was started back on his seizure medications as well as his blood pressure medications. Thankfully, he had an uneventful hospital course. During the hospitalization, he was noted to have some haziness on his chest x-ray which was felt to be aspiration pneumonia due to his multiple seizures. He was placed on antibiotics which he tolerated well. DISPOSITION: Patient will be discharged home. He will continue clindamycin at home for a total of 7 days. He will follow up outpatient with treatment facility of choice. Discussed with him that he needs to continue follow up with a neurologist and he needs to start taking his seizure medications on a regular basis. Thirty minutes was spent in total care. cc: Ian Sheikh MD
== END 2019-05-20 10:27 | disposition home or self-care (01) | DRG 177 ==
LOC: P.ED 15:17 → P.ICU 18:28 → P.MEDSURG 05-19 22:03
PROVIDERS: ADMIT Family Medicine; ATTEND Family Medicine

== ENCOUNTER 2019-05-20 18:24 | Inpatient (IN) ==
[2019-05-20] MEDS ORDERED: ATIVAN IV ONE (19:13)
--- NOTE | 2019-05-20 20:12 | Diag Imaging Result Doc PS360 ---
EXAM: CT HEAD W/O CONTRAST HISTORY: AMS TECHNIQUE: CT head without contrast COMPARISON: 05/18/2019 FINDINGS: No parenchymal hemorrhage. No epidural or subdural hematoma. No subarachnoid hemorrhage. No mass identified on this noncontrasted exam. No hydrocephalus. No sinus opacification. IMPRESSION: No hemorrhage. Negative brain CT without contrast. This exam was performed using automated exposure control, adjustment of mA or kV according to patient size, and/or use of iterative reconstruction technique. Electronically signed by Calixto Montoya 05/20/2019 8:10 PM
[2019-05-20 20:14] LABS: BASO# 0.02 X1000 (0.0-0.2); BASO% 0.2 % (0.0-0.8); EOS# 0.07 X1000 (0.0-0.7); EOS% 0.8 % (0.0-10.0); HEMOGLOBIN 13.4 g/dL (14.0-18.0); IMM GRAN# 0.01 X1000 (0.0-0.04); IMM GRAN% 0.1 % (0.0-0.5); LYMPH# 1.37 X1000 (1.2-3.4); LYMPH% 15.8 % (20.5-51.1); MCH 30.8 PG (27-31); MCHC 34.4 g/dL (33-37); MCV 89.7 FL (81-99); MONO# 0.98 X1000 (0.11-0.59); MONO% 11.3 % (1.7-9.3); MPV 10.3 FL (7.4-10.4); NEUT# 6.22 X1000 (1.4-6.5); NEUT% 71.8 % (42.2-75.2); PLT 160 X1000 (130-400); RBC 4.35 XMIL (4.7-6.1); RDW 13.1 % (11.5-14.5); WBC 8.67 X1000 (4.8-10.8)
--- NOTE | 2019-05-20 20:21 | Diag Imaging Result Doc PS360 ---
EXAM: CHEST-2 VIEWS HISTORY: ASP PNA TECHNIQUE: Chest two views COMPARISON: 05/19/2019 FINDINGS: The lungs are hyperexpanded. The heart is not enlarged. The vessels are not distended. There are no infiltrates. No pleural effusions. Old rib fractures. Mild old lower thoracic compression fracture. This was present on a prior CT. IMPRESSION: No pneumonia. Electronically signed by Calixto Montoya 05/20/2019 8:19 PM
[2019-05-20 20:44] LABS: ESTIMATED GFR > 60
[2019-05-20 20:45] LABS: AGAP 21; ALBUMIN 4.6 g/dL (3.5-5.0); ALKALINE PHOSPHATASE 60 U/L (32-122); BUN 3 mg/dL (8-22); CALCIUM 9.9 mg/dL (8.8-10.2); CHLORIDE 94 mmol/L (98-107); COSMO 252; CREATININE 0.7 mg/dL (0.7-1.2); GLUCOSE 104 mg/dL (70-104); GOT 51 U/L (10-34); GPT 30 U/L (10-44); LIPASE 14 U/L (13-60); SODIUM 127 mmol/L (136-145); TCO2 12 mmol/L (25-35); TOTAL PROTEIN 7.9 g/dL (6.3-8.3)
[2019-05-20] MEDS ORDERED: NS 1,000 ML IV ONE ×3 (20:49→22:25)
[2019-05-20 21:27] LABS: UR AMPHETAMINES QUAL NONE DETECTED (NONE DETECT); UR BARBITUATES QUAL NONE DETECTED (NONE DETECT); UR BENZODIAZEPIN QUAL NONE DETECTED (NONE DETECT); UR CANNABINOIDS QUAL NONE DETECTED (NONE DETECT); UR COCAINE QUAL NONE DETECTED (NONE DETECT); UR METHADONE QUAL NONE DETECTED (NONE DETECT); UR METHAMPHETAMINE QUAL NONE DETECTED (NONE DETECT); UR OPIATES QUAL NONE DETECTED (NONE DETECT); UR OXYCODONE QUAL NONE DETECTED (NONE DETECT); UR PCP QUAL NONE DETECTED (NONE DETECT); UR PROPOXYPHENE QUAL NONE DETECTED (NONE DETECT); UR TCA QUAL NONE DETECTED (NONE DETECT)
[2019-05-20 21:31] LABS: BILIRUBIN URINE NEGATIVE (NEGATIVE); BLOOD URINE 1+ (NEGATIVE); CLARITY CLEAR (CLEAR); COLOR YELLOW; GLUCOSE URINE NEGATIVE (NEGATIVE); KETONE URINE 1+(Small) mg/dL (NEGATIVE); LEUKOCYTES URINE TRACE (NEGATIVE); NITRITE URINE NEGATIVE (NEGATIVE); PROTEIN URINE TRACE mg/dL (NEGATIVE); SP GRAVITY URINE 1.005; URINE BACTERIA 1+ /HFP; URINE CAST NONE SEEN /LPF; URINE CRYSTAL NONE SEEN /HPF; URINE EPITHELIAL CELLS <10 /HPF (<10); URINE SOURCE CATH; URINE WBC <10 /HPF (<10); URINE YEAST NONE SEEN /HPF; UROBILINOGEN URINE NORMAL
--- NOTE | 2019-05-20 21:34 | PROVIDER DOCUMENTATION ---
This chart was entered by Claudine Louise Scribe, acting as scribe for Myra Pitts CRNP. HPI-General Adult - General Chief Complaint: Altered Mental Status Stated Complaint: AMS Time Seen by Provider: 05/20/19 18:41 Source: patient, family Allergies/Adverse Reactions: Patient Allergies Allergy/AdvReac Type Severity Reaction Status Date / Time No Known Allergies Allergy Verified 05/20/19 18:53 Home Medications: Home Medication List Medication Instructions Recorded Confirmed Last Taken Type Lamotrigine [Lamictal] 200 mg PO BID 05/18/19 05/20/19 Unknown History Clindamycin [Cleocin] 300 mg PO TID #7 cap 05/20/19 05/20/19 Unknown Rx - History of Present Illness -Gen Adult Nature of Presenting Problems: pt is a 54 yr old male presenting to ER with mother, mother reports pt was discharged from ICU this AM, pt was admitted with seizures and aspiration pneumonia. mother reports pt has been AMS, confused, forgetful and agitated since discharge, mom reports she told the nurse this morning he did not seem himself. pt admits to diarrhea, denies any other complaints. pt answers orientation questions correctly but is disoriented at times. The patient has no focal weakness or signs of seizure on exam Location of Pain/Injury: reports: abdomen Pain Radiation: reports: no radiation Quality of Pain: reports: aching Severity: reports: mild Onset/Duration: reports: unsure Timing: reports: still present Context/Activities at Onset: reports: rest Modifying Factors: improves with: nothing Associated Symptoms: reports: diarrhea. denies: back/neck pain, chest pain, dizziness, fever/chills, nausea, shortness of breath, vomiting Similar Symptoms Previously?: No Recently seen or treated by another doctor?: Yes Review of Systems - Adult - REVIEW OF SYSTEMS - ADULT Constitutional: denies: chills, fever, fatique Eyes: reports: no symptoms reported Ears, Nose, Mouth & Throat: reports: no symptoms reported Cardiovascular: denies: chest pain, palpitations, syncope Respiratory: denies: cough, shortness of breath Gastrointestinal: reports: abdominal pain, diarrhea. denies: nausea, vomiting Genitourinary: reports: no symptoms reported Musculoskeletal: reports: no symptoms reported Integumentary: reports: no symptoms reported Neurological: reports: no symptoms reported Psychiatric: reports: no symptoms reported Endocrine: reports: no symptoms reported Hematologic/Lymphatic: reports: no symptoms reported Allergic/Immunologic: reports: no symptoms reported All Other Systems: Reviewed and Negative Past History - Adult - PAST MEDICAL HISTORY-ADULT Review of Records: reports: Old Records Reviewed, Nursing Assessment Review, Medications Reviewed, Social history reviewed & non-contributory. Major Childhood Illnesses: reports: denies history Cardiovascular: reports: CAD, HTN Respiratory: reports: denies history Gastrointestinal: reports: GERD Obstetrical/Gynecological: reports: denies history Genitourinary: reports: denies history Musculoskeletal: reports: denies history Neurological: reports: Seizures/Epilepsy Psychiatric: reports: depression, other (alcoholism) Endocrine/Immune: reports: denies history, other (hyponatremia) Other Conditions: reports: denies history Additional History: alcohol abuse - PRIOR SURGERIES/PROCEDURES Surgical/Procedure History: reports: reviewed, not pertinent, other (ulcer) - PRIOR HOSPITALIZATIONS Prior Hospitalizations: reports: none - IMMUNIZATION STATUS Childhood Immunizations: See Nurse Assessment Flu Vaccine: See Nurse Assessment - FAMILY HISTORY Family History: reviewed, not pertinent - SOCIAL HISTORY Smoking: cigarettes Provider spent 3-5 mins advising pt. on dangers of tobacco.: Discussed manners to quit use, and f/u contacts for add'l counseling. Substance Use: alcohol Alcohol Use Frequency: every day Living Situation: family Physical Exam-General - PHYSICAL EXAM-ADULT Initial Vital Signs Reviewed: Yes - CONSTITUTIONAL General Appearance: alert, no apparent distress - EYES Eyes: PERRL/EOMI, pink conjunctivae - HEAD, EARS, NOSE, MOUTH & THROAT HENMT: normocephalic/atraumatic, moist mucous membranes, normal ENT inspection - NECK Neck: non-tender, full range of motion, supple, normal inspection - RESPIRATORY Respiratory: chest non-tender, lungs clear, normal breath sounds, no respiratory distress, no accessory muscle use - CARDIOVASCULAR Cardiovascular: normal peripheral pulses, regular rate, rhythm, no edema - GASTROINTESTINAL (ABDOMEN) Abdominal Exam: normal bowel sounds, soft, tenderness (genrealized) - LYMPHATIC Lymphatic: no adenopathy - MUSCULOSKELETAL Back Exam: normal inspection, no CVA tenderness, no vertebral tenderness Extremity: normal range of motion, non-tender, normal gait, normal inspection - SKIN Integumentary: normal color, normal turgor, warm/dry - NEUROLOGIC Neurologic: grossly normal - PSYCHIATRIC Psych/Mental Status: anxious, disheveled Progress - PLAN OF CARE/RESULTS Progress/Plan/Lab Results: Vital Signs - 8 hr 05/20/19 18:31 Temperature 98 F Pulse Rate 96 H Respiratory Rate 18 Blood Pressure 185/90 O2 Sat by Pulse Oximetry 97 Orders Category Date Time Status CHEST-2 VIEWS [RAD] Stat Exams 05/20/19 18:[address] HEAD W/O CONTRAST [CT] Stat Exams 05/20/19 18:47 Ordered AMMONIA [CHEM] Stat Lab 05/20/19 18:47 Uncollected AMYLASE [CHEM] Stat Lab 05/20/19 18:50 Ordered CBC WITH ELECTRONIC DIFF [HEME] Stat Lab 05/20/19 18:47 Ordered COMPREHENSIVE METABOLIC PANEL [CHEM] Stat Lab 05/20/19 18:47 Uncollected LIPASE [CHEM] Stat Lab 05/20/19 18:50 Uncollected UA NIMS W/REFLEX CULT PL [URINALYSIS] Stat Lab 05/20/19 18:47 Uncollected URINE DRUG SCREEN PL Stat Lab 05/20/19 18:47 Uncollected 1845:staff reported patient confused in CT urinated on himself and was disoriented. Result Diagrams: 05/20/19 20:05 05/20/19 20:05 - XRAY 1 XRAY Study: Chest Impression: See EMR Report (EXAM: CHEST-2 VIEWS HISTORY: ASP PNA TECHNIQUE: Chest two views COMPARISON: 05/19/2019 FINDINGS: The lungs are hyperexpanded. The heart is not enlarged. The vessels are not distended. There are no infiltrates. No pleural effusions. Old rib fractures. Mild old lower thoracic compression fracture. This was present on a prior CT. IMPRESSION: No pneumonia. Electronically signed by Calixto Montoya 05/20/2019 8:19 PM 05/20/192018 Interpreting Physician: Calixto Montoya MD Dictated Date/Time: 05/20/192016 cc: Myra Pitts; None,PCP) - CT/MRI 1 CT Study: Head Impression: See EMR Report ( EXAM: CT HEAD W/O CONTRAST HISTORY: AMS TECHNIQUE: CT head without contrast COMPARISON: 05/18/2019 FINDINGS: No parenchymal hemorrhage. No epidural or subdural hematoma. No subarachnoid hem orrhage. No mass identified on this noncontrasted exam. No hydrocephalus. No sinus opacification. IMPRESSION: No hemorrhage. Negative brain CT without contrast. This exam was performed using automated exposure control, adjustment of mA or kV according to patient size, and/or use of iterative reconstruction technique. Electronically signed by Calixto Montoya 05/20/2019 8:10 PM 05/20/192009 Interpreting Physician: Calixto Montoya MD Dictated Date/Time: 05/20/192008 cc: Myra Pitts; None,PCP) - CONSULTS/PCP/HOSPITALIST Notification #1 *Consult/PCP/Hospitalist*: Dr. Brown Time Discussed: 21:32 Consult Disposition: Admit Departure - Departure Date of Disposition Decision: 05/20/19 Time of Disposition Decision: 21:33 DIAGNOSIS: Hyponatremia Altered mental status Qualifiers: Altered mental status type: unspecified Qualified Code(s): R41.82 - Altered mental status, unspecified UTI (urinary tract infection) Qualifiers: Urinary tract infection type: site unspecified Hematuria presence: without hematuria Qualified Code(s): N39.0 - Urinary tract infection, site not specified Disposition: ADMITTED INPATIENT 09 Certified Medical Emergency: Emergent Condition: Fair Referrals and Follow-Ups: None,PCP [Primary Care Provider] - - Critical Care Note This patient required my direct & personal management of CC.: No Attestation - Physician/ GILDARDO Attestation Patient care was provided by Advanced Practice Provider:: Yes Advanced Practice Provider:: Myra Pitts Advanced Practice Provider documentation review:: The Mid-level provider documentation, treatment plan and medical decision making was reviewed by the physician who agrees with all treatment and medical decision making by the P. The physician spent face to face time with patient:: No Advanced Practice Provider documentation review:: Supervising physician onsite and consulted in the evaluation and care of this patient. The physician did not have a face to face encounter with the patient. This chart was documented by the indicated scribe, (Claudine Louise Scribe) and accurately reflects the services I performed and decisions made by me, Myra Pitts CRNP, as attested by the provider's signature.
[2019-05-20] MEDS ORDERED: CATAPRES PO ONE (21:43)
[2019-05-20] MEDS ORDERED: ROCEPHIN 1 GM in NS 50 ML IV SCH ×2 (21:45→22:30)
--- NOTE | 2019-05-20 22:07 | EKG Report ---
Test Performed on : 05/20/2019 9:40:28 PM Test Reason : ams Blood Pressure : / mmHG Vent. Rate : 090 BPM Atrial Rate : 092 BPM P-R Int : 174 ms QRS Dur : 084 ms QT Int : 350 ms P-R-T Axes : 066 055 075 degrees QTc Int : 428 ms Normal sinus rhythm. Septal infarct (cited on or before 27-AUG-2018) Abnormal ECG When compared with ECG of 18-MAY-2019 16:19, (Unconfirmed) No significant change was found Unconfirmed Result
[2019-05-20] MEDS ORDERED: ATIVAN IV PRN (22:25)
[2019-05-21] MEDS ORDERED: FLU VACCINE IM ONE (01:16)
[2019-05-21 09:11] LABS: HEMATOCRIT 41.9 % (42.0-52.0); HEMOGLOBIN 14.6 g/dL (14.0-18.0); MCH 31.4 PG (27-31); MCHC 34.8 g/dL (33-37); MCV 90.1 FL (81-99); MPV 10.4 FL (7.4-10.4); RBC 4.65 XMIL (4.7-6.1); RDW 13.3 % (11.5-14.5); WBC 4.98 X1000 (4.8-10.8)
[2019-05-21 10:11] LABS: AGAP 11; ALBUMIN 4.5 g/dL (3.5-5.0); ALKALINE PHOSPHATASE 59 U/L (32-122); BUN 3 mg/dL (8-22); CALCIUM 9.9 mg/dL (8.8-10.2); CHLORIDE 105 mmol/L (98-107); COSMO 270; CREATININE 0.7 mg/dL (0.7-1.2); ESTIMATED GFR > 60; GLUCOSE 123 mg/dL (70-104); GOT 56 U/L (10-34); GPT 31 U/L (10-44); POTASSIUM 3.9 mmol/L (3.5-5.1); SODIUM 136 mmol/L (136-145); TCO2 20 mmol/L (25-35); TOTAL PROTEIN 7.6 g/dL (6.3-8.3)
[2019-05-21] MEDS: CLEOCIN PO SCH ×2 (10:48→17:41)
[2019-05-21] MEDS: CULTURELLE PO SCH ×2 (10:48→20:33)
[2019-05-21] MEDS: LAMICTAL PO SCH ×2 (10:48→20:33)
[2019-05-21] MEDS: PRILOSEC PO SCH (10:49)
--- NOTE | 2019-05-21 10:49 | HISTORY AND PHYSICAL ---
CHIEF COMPLAINT: Confusion. HISTORY OF PRESENT ILLNESS: This is a 54-year-old gentleman with a long-standing history of seizures, medical noncompliance, alcohol abuse and hypertension. He presented to the emergency room with his mother at about 6:45 on the with his mother, who stated that the patient has been confused, forgetful and agitated since discharge from the hospital earlier in the day. Mr. Ross was admitted to [facility] on the , being brought in by EMS postictal and unresponsive after having seizures, 5 of which were witnessed by EMS during their contact with the patient. He was monitored in ICU. He had no further seizures. He returned back to his normal state and was discharged on the . Of note, chest x-ray did show some haziness which was felt to be aspiration pneumonia, so due to his multiple seizures and postictal state, he was discharged on clindamycin for a total of 7 days. The patient states that he did not fill this prescription. At the time of my exam, the patient is agitated. He states that he does not need to be in the hospital. He is threatening to leave against medical advice. He stated "I come in and I leave the next morning whether y'all discharge me or not". When asked about taking his medications, he stated "sometimes I take them and sometimes I don't, it just depends". PAST MEDICAL HISTORY: 1. Seizure disorder. 2. Alcohol abuse, although he states it has been 3 to 4 months since his last drink. 3. Hypertension. 4. Depression. PAST SURGICAL HISTORY: Denies. SOCIAL HISTORY: He smokes daily. He has a history of alcohol use and abuse although his answers vary on when his last drink was. He denies any illicit drug use. ALLERGIES: No known drug allergies. HOME MEDICATIONS: None. REVIEW OF SYSTEMS: Discussed with patient with pertinent positives stated in the HPI. He denied any syncope or dizziness, chest pain, palpitations, any cough, fever, chills, nausea, vomiting, constipation, black or bloody vomitus or stools, any hematuria, dysuria, frequency, urgency. PHYSICAL EXAMINATION: GENERAL: This is a 54-year-old gentleman who is sitting in the bed on the [facility] floor in no distress. VITAL SIGNS: Blood pressure is 159/93 with heart rate of 95, respirations 18, temperature 98.1 degrees with room air saturations 98 to 100 percent. HEENT: Pupils are equal, round, react to light. EOMs are intact. Sclerae anicteric. Head is normocephalic, atraumatic. Mucous membranes are moist. NECK: Supple with trachea midline. CARDIOVASCULAR: Regular rate and rhythm. S1 and S2 are appreciated. He has no lower extremity edema. Calves are nontender with peripheral pulses palpable x4 extremities. PULMONARY: Breath sounds are clear with no increased work of breathing noted. Chest rises and falls symmetric with respiration. Chest wall is nontender to palpation. GASTROINTESTINAL: Abdomen is soft, nontender, nondistended with bowel sounds in all 4 quadrants. NEUROLOGIC: He is alert and oriented x3. GENITOURINARY: He has a Jurado patent to bedside bag with clear yellow urine draining. LABORATORY DATA: WBC is 8.6 with hemoglobin 13.4, hematocrit 39, and platelets of 160,000. Sodium 127, potassium 4, BUN 23, creatinine 0.7 with a glucose of 104. CO2 is 12 with an anion gap of 21. Urinalysis is a catheter specimen that has 1+ blood with less than 10 microscopic white blood cells and epithelial cells. Urine drug screen reveals none detected. Blood alcohol is none detected. IMAGIN. Chest x-ray, no pneumonia. 2. CT of the head reveals no hemorrhage, negative brain CT without contrast. ASSESSMENT: 1. Hyponatremia. 2. Confusion. 3. Anion gap metabolic acidosis. 4. History of seizure disorder. 5. Hypertension. 6. History of alcohol abuse. 7. Noncompliance with medication. PLAN: The patient has been admitted to the Med-Surg floor, placed on telemetry which we will continue. As he is awake and alert, we will discontinue his Jurado catheter and check strict intake and output. We will order a CBC and a CMP for this morning. We will continue with IV hydration based on his labs as he was diagnosed with aspiration pneumonia after multiple seizures. We will restart his clindamycin at this time along with Culturelle and will monitor. We will continue with neuro checks. We will restart his Lamictal 200 mg b.i.d. The plan was discussed with Dr. Doe. Further treatments pending hospital course. Dictated by DAYDAY Mcleod for Haider Doe MD cc: DAYDAY Mcleod MD
--- NOTE | 2019-05-21 13:43 | HISTORY AND PHYSICAL ---
ADDENDUM: I saw the patient [id number] and fully agree with the assessment and plan of nurse practitioner, Mariela Naik. This is a 54-year-old gentleman who has a longstanding history of seizure disorder, medical noncompliance and alcohol abuse, along with hypertension. He was brought in because of altered mental status. He has been somewhat agitated and states that he takes medications only when he thinks he needs them. Currently, he is doing well, although he was found to have a sodium level of 127 last night. His sodium levels have normalized to 136. We have restarted all of his medications and currently his altered mental status has improved. We will continue to monitor him and get neuro checks and go from there. cc: Haider Doe MD
[2019-05-22] MEDS: CLEOCIN PO SCH ×3 (01:22→10:41)
[2019-05-22 06:04] VITALS: BP 105/60
[2019-05-22] MEDS: PRILOSEC PO SCH (06:11)
[2019-05-22 07:04] LABS: BASO# 0.03 X1000 (0.0-0.2); BASO% 0.5 % (0.0-0.8); EOS# 0.24 X1000 (0.0-0.7); EOS% 4.3 % (0.0-10.0); HEMATOCRIT 43.1 % (42.0-52.0); HEMOGLOBIN 14.5 g/dL (14.0-18.0); IMM GRAN# 0.02 X1000 (0.0-0.04); IMM GRAN% 0.4 % (0.0-0.5); LYMPH# 1.55 X1000 (1.2-3.4); LYMPH% 27.5 % (20.5-51.1); MCH 30.6 PG (27-31); MCHC 33.6 g/dL (33-37); MCV 90.9 FL (81-99); MONO# 0.81 X1000 (0.11-0.59); MONO% 14.4 % (1.7-9.3); MPV 10.6 FL (7.4-10.4); NEUT# 2.98 X1000 (1.4-6.5); NEUT% 52.9 % (42.2-75.2); PLT 186 X1000 (130-400); RBC 4.74 XMIL (4.7-6.1); RDW 13.4 % (11.5-14.5); WBC 5.63 X1000 (4.8-10.8)
[2019-05-22] MEDS: CULTURELLE PO SCH ×2 (07:55→10:41)
[2019-05-22] MEDS: LAMICTAL PO SCH ×2 (07:56→10:41)
--- NOTE | 2019-05-22 10:24 | DISCHARGE SUMMARY ---
ADMISSION DATE: 05/20/2019 DISCHARGE DATE: 05/22/2019 DISCHARGE DIAGNOSES: 1. Altered mental status secondary to hyponatremia. 2. Seizure disorder. 3. Alcohol abuse. HOSPITAL COURSE: This is a 54-year-old gentleman who has a longstanding history of seizure disorder, along with medical noncompliance and alcohol abuse. He was brought into the emergency room after he was found to be confused and forgetful, along with having agitation. The patient was noted to have hyponatremia with a sodium level of 127. Subsequently, his sodium level improved to 136, and his overall condition improved. His condition has been stable and therefore, we are going to let him go home today. DISCHARGE MEDICATIONS: Lamotrigine 200 mg orally twice daily. FOLLOWUP: He ill follow up with his PCP in approximately 2 weeks. CONDITION: Stable. DISPOSITION: Home. cc: Haider Doe MD
== END 2019-05-22 10:41 | disposition home or self-care (01) | DRG 641 ==
LOC: P.ED 18:24 → SUATTDRO 21:57 → P.MEDSURG 21:57
PROVIDERS: ATTEND Internal Medicine

== ENCOUNTER 2019-09-23 11:06 | Inpatient (IN) ==
--- NOTE | 2019-09-23 11:53 | Diag Imaging Result Doc PS360 ---
EXAM: CT HEAD W/O CONTRAST 09/23/2019 HISTORY: AMS TECHNIQUE: This exam was performed using automated exposure control, adjustment of mA or kV according to patient size, and/or use of iterative reconstruction technique. COMMENT: There is a scalp hematoma on the right over the frontal bone. There is no evidence of mass effect, bleed, or abnormal extra-axial fluid collection intracranially. The calvarium is intact. The visualized paranasal sinuses are clear. IMPRESSION: Scalp hematoma. No evidence of acute intracranial disease. Electronically signed by Flavio Kirby 09/23/2019 11:51 AM
[2019-09-23 12:08] LABS: ALLEN TEST YES; BE -3.6 mmoll (-3.0-3.0); BLOOD TYPE ARTERIAL; HCO3-(ACT) 22.1 mmoll (20.0-26.0); METHB 1.2 % (0.0-1.5); O2(CT) 20.3 mL/dL (15.0-23.0); O2HB 95.4 % (95.0-99.0); PCO2(98.6) 25 mmHg (35-45); PO2(98.6) 95 mmHg (60-100); SAMPLE BLOOD; SAO2 98.7 % (95.0-100.0); THB 15.1 g/dL (11.5-17.4); pH(98.6) 7.47 (7.35-7.45)
[2019-09-23 12:10] LABS: MODALITY ROOM AIR
--- NOTE | 2019-09-23 12:42 | EKG Report ---
Test Performed on : 09/23/2019 12:29:27 PM Test Reason : ams Blood Pressure : / mmHG Vent. Rate : 092 BPM Atrial Rate : 375 BPM P-R Int : 000 ms QRS Dur : 094 ms QT Int : 358 ms P-R-T Axes : 002 031 061 degrees QTc Int : 442 ms Atrial flutter. with 4:1 AV conduction. Septal infarct , age undetermined Abnormal ECG No previous ECGs available Unconfirmed Result
--- NOTE | 2019-09-23 12:56 | Diag Imaging Result Doc PS360 ---
EXAM: CHEST-PORTABLE 09/23/2019 HISTORY: ams TECHNIQUE: AP portable upright at 1249 COMMENT: There are multiple old rib fractures on the left. There is no evidence of acute cardiac or pulmonary disease. There are no pleural effusions and there is no evidence of pneumothorax. IMPRESSION: No evidence of acute disease. Electronically signed by Flavio Kirby 09/23/2019 12:54 PM
[2019-09-23 13:14] LABS: BASO# 0.01 X1000 (0.0-0.2); BASO% 0.1 % (0.0-0.8); EOS# 0.02 X1000 (0.0-0.7); EOS% 0.2 % (0.0-10.0); HEMATOCRIT 42.5 % (42.0-52.0); HEMOGLOBIN 14.5 g/dL (14.0-18.0); IMM GRAN# 0.03 X1000 (0.0-0.04); IMM GRAN% 0.3 % (0.0-0.5); LYMPH# 0.72 X1000 (1.2-3.4); LYMPH% 7.5 % (20.5-51.1); MCH 29.9 PG (27-31); MCHC 34.1 g/dL (33-37); MCV 87.6 FL (81-99); MONO# 1.11 X1000 (0.11-0.59); MONO% 11.6 % (1.7-9.3); MPV 10.4 FL (7.4-10.4); NEUT# 7.66 X1000 (1.4-6.5); NEUT% 80.3 % (42.2-75.2); PLT 115 X1000 (130-400); RBC 4.85 XMIL (4.7-6.1); RDW 16.2 % (11.5-14.5); WBC 9.55 X1000 (4.8-10.8)
[2019-09-23 13:22] LABS: INR 0.92; PROTIME 12.4 Seconds (11.0-16.0)
[2019-09-23 13:23] LABS: PTT 26.5 Seconds (22.3-41.8)
[2019-09-23 13:34] LABS: AGAP 21; ALB/GLOB RATIO 1.1; ALBUMIN 4.4 g/dL (3.5-5.0); ALKALINE PHOSPHATASE 82 U/L (32-122); BUN 5 mg/dL (8-22); CALCIUM 9.3 mg/dL (8.8-10.2); CHLORIDE 83 mmol/L (98-107); CK PROFILE 990 U/L (24-204); COSMO 246; CREATININE 0.8 mg/dL (0.7-1.2); ESTIMATED GFR > 60; GLUCOSE 78 mg/dL (70-104); GOT 125 U/L (10-34); GPT 62 U/L (10-44); MAGNESIUM 1.8 mg/dL (1.5-2.7); POTASSIUM 3.9 mmol/L (3.5-5.1); SODIUM 124 mmol/L (136-145); TCO2 20 mmol/L (25-35); TOTAL PROTEIN 8.3 g/dL (6.3-8.3)
[2019-09-23] MEDS ORDERED: NS 1,000 ML IV ONE (13:41)
[2019-09-23 14:10] LABS: URINE SOURCE CATH
[2019-09-23 14:17] LABS: CK INDEX 3.1 (0.0-2.5); CK-MB 31.05 ng/mL (0.0-5.0)
[2019-09-23 14:19] LABS: BILIRUBIN URINE NEGATIVE (NEGATIVE); BLOOD URINE MODERATE (NEGATIVE); COLOR YELLOW; GLUCOSE URINE NEGATIVE (NEGATIVE); KETONE URINE 20 mg/dL (NEGATIVE); LEUKOCYTES URINE NEGATIVE (NEGATIVE); NITRITE URINE NEGATIVE (NEGATIVE); PH URINE 6.5; PROTEIN URINE 30 mg/dL (NEGATIVE); SP GRAVITY URINE 1.011; TURBIDITY URINE CLEAR (CLEAR); UROBILINOGEN URINE NORMAL (NORMAL)
[2019-09-23 14:21] LABS: UR EPITHELIAL CELLS <10 /HPF (<10); URINE BACTERIA NEGATIVE /HPF; URINE RBC <10 /HPF (<10); URINE WBC <10 /HPF (<10)
[2019-09-23 14:37] LABS: UR AMPHETAMINES QUAL NONE DETECTED (NONE DETECT); UR BARBITUATES QUAL NONE DETECTED (NONE DETECT); UR BENZODIAZEPIN QUAL PRESUMPTIVE POSITIVE (NONE DETECT); UR CANNABINOIDS QUAL NONE DETECTED (NONE DETECT); UR COCAINE QUAL NONE DETECTED (NONE DETECT); UR METHADONE QUAL NONE DETECTED (NONE DETECT); UR OPIATES QUAL NONE DETECTED (NONE DETECT); UR OXYCODONE QUAL NONE DETECTED (NONE DETECT); UR PCP QUAL NONE DETECTED (NONE DETECT)
[2019-09-23] MEDS ORDERED: ATIVAN IV ONE (17:22)
--- NOTE | 2019-09-23 17:53 | PROVIDER DOCUMENTATION ---
This chart was entered by Marissa Barber Scribe, acting as scribe for Ander Willis MD. HPI-General Adult - General Chief Complaint: Altered Mental Status Stated Complaint: AMS Time Seen by Provider: 09/23/19 12:04 Source: patient, EMS Unable to obtain history due to:: altered Allergies/Adverse Reactions: Patient Allergies Allergy/AdvReac Type Severity Reaction Status Date / Time Unable to Assess Allergy Unverified 09/23/19 11:49 Home Medications: Home Medication List Medication Instructions Recorded Confirmed Last Taken Type Lamotrigine [Lamictal] 200 mg PO BID 05/18/19 05/21/19 Unknown History - History of Present Illness -Gen Adult Nature of Presenting Problems: 54 yowm presents to the ed with ams. per ems pt is staying in house with people he does not know, ems questions people and they stated they do not know his name or who he is. they ss he fell last night. pt on exam has abrasion to rt forehead and can follow commands but does not speak often. pt has hx of seizures but unsure if he is taking medications. pt got out of retirement 10 days prior. pt on exam is awake and alert. pt denies pain Location of Pain/Injury: reports: none Pain Radiation: reports: no radiation Quality of Pain: reports: none Severity: reports: moderate Onset/Duration: reports: unsure Timing: reports: still present Context/Activities at Onset: reports: light activity Modifying Factors: improves with: nothing Associated Symptoms: reports: fever/chills Similar Symptoms Previously?: Yes (hx of seizure but no seiazure witnessed) Recently seen or treated by another doctor?: No Review of Systems - Adult - REVIEW OF SYSTEMS - ADULT Constitutional: reports: chills, fever Eyes: reports: no symptoms reported Ears, Nose, Mouth & Throat: reports: no symptoms reported Cardiovascular: denies: chest pain, palpitations Respiratory: denies: cough, shortness of breath, wheezing Gastrointestinal: denies: abdominal pain, diarrhea, nausea, vomiting Genitourinary: reports: no symptoms reported Musculoskeletal: denies: back pain, neck pain Integumentary: reports: no symptoms reported Neurological: reports: see HPI, tremors. denies: dizziness/vertigo, headache/migraines Psychiatric: reports: no symptoms reported Endocrine: reports: no symptoms reported Hematologic/Lymphatic: reports: no symptoms reported Allergic/Immunologic: reports: no symptoms reported All Other Systems: Reviewed and Negative Past History - Adult - PAST MEDICAL HISTORY-ADULT Review of Records: reports: Old Records Reviewed, Nursing Assessment Review, Medications Reviewed, Social history reviewed & non-contributory. Major Childhood Illnesses: reports: denies history Cardiovascular: reports: HTN Respiratory: reports: denies history Gastrointestinal: reports: denies history Genitourinary: reports: denies history Musculoskeletal: reports: denies history Neurological: reports: denies history Endocrine/Immune: reports: denies history Other Conditions: reports: denies history - PRIOR SURGERIES/PROCEDURES Surgical/Procedure History: reports: reviewed, not pertinent - IMMUNIZATION STATUS Childhood Immunizations: See Nurse Assessment Flu Vaccine: See Nurse Assessment - FAMILY HISTORY Family History: reviewed, not pertinent - SOCIAL HISTORY Substance Use: alcohol Alcohol Use Frequency: every day Living Situation: other (pt is staying in a house but does not know the people that are there with him) Physical Exam-General - PHYSICAL EXAM-ADULT Exam Limited by: pt is slow to answer but follows commands Initial Vital Signs Reviewed: Yes (temp-100.5 BP-185/104) - CONSTITUTIONAL General Appearance: appears well, alert, no apparent distress, slow to respond - EYES Eyes: PERRL/EOMI, pink conjunctivae - HEAD, EARS, NOSE, MOUTH & THROAT HENMT: moist mucous membranes, other (abrasion noted x2 rt forehead) - NECK Neck: non-tender, full range of motion, supple, normal inspection - RESPIRATORY Respiratory: chest non-tender, lungs clear, normal breath sounds, increased rate (22) - CARDIOVASCULAR Cardiovascular: normal peripheral pulses, regular rate, rhythm - CHEST (BREASTS) Chest/Breast: deferred - GASTROINTESTINAL (ABDOMEN) Abdominal Exam: normal bowel sounds, non tender, soft - GENITOURINARY Male Genitalia: deferred Rectal Exam: deferred Hemoccult Exam: deferred - LYMPHATIC Lymphatic: no adenopathy - MUSCULOSKELETAL Back Exam: no CVA tenderness, no vertebral tenderness Extremity: normal range of motion, non-tender, normal inspection - SKIN Integumentary: normal color, normal turgor, warm/dry, abrasion(s) (rt forehead) - NEUROLOGIC Neurologic: grossly normal - PSYCHIATRIC Psych/Mental Status: normal thought content, normal thought process, oriented x 3, disheveled Progress - PLAN OF CARE/RESULTS Progress/Plan/Lab Results: Vital Signs - 8 hr 09/23/19 11:20 Temperature 100.5 F H Pulse Rate 95 H Respiratory Rate 22 Blood Pressure 151/107 O2 Sat by Pulse Oximetry 97 Laboratory Results - last 24 hr 09/23/19 09/23/19 11:59 12:12 Specimen Type ARTERIAL Sample Site L RADIAL pH 7.47 H pCO2 25 L pO2 95 HCO3 22.1 Base Excess -3.6 L Oxyhemoglobin 95.4 ABG O2 Sat (Calculated) 20.3 ABG O2 Saturation 98.7 ABG Carboxyhemoglobin 2.20 ABG Methemoglobin 1.2 Dandy Test YES A-a O2 Difference 23.0 Total Hemoglobin 15.1 Lactate 3.10 H Blood Gas Modality ROOM AIR FiO2 % 21.0 POC Glucose 83 Orders Category Date Time Status Cardiac Monitoring DIRECTED Care 09/23/19 11:50 Active Finger Stick Blood Sugar (ED) DIRECTED Care 09/23/19 11:50 Active Oxygen Therapy- ED Nursing DIRECTED Care 09/23/19 11:50 Active Saline Loc NOW Care 09/23/19 11:50 Active Seizure Precautions ROUTINE Care 09/23/19 12:40 Active CHEST-PORTABLE [RAD] Stat Exams 09/23/19 11:[address] HEAD W/O CONTRAST [CT] Stat Exams 09/23/19 11:32 Completed ABG [RESP] Routine Lab 09/23/19 11:59 Completed ALCOHOL BLOOD Stat Lab 09/23/19 11:50 Uncollected CBC WITH ELECTRONIC DIFF [HEME] Stat Lab 09/23/19 11:50 Uncollected CK PROFILE [SP CHEM] Stat Lab 09/23/19 11:50 Uncollected COMPREHENSIVE METABOLIC PANEL [CHEM] Stat Lab 09/23/19 11:50 Uncollected LACTATE, PLASMA [CHEM] Stat Lab 09/23/19 11:50 Uncollected MAGNESIUM [CHEM] Stat Lab 09/23/19 12:40 Uncollected PROTIME WITH INR [COAG] Stat Lab 09/23/19 11:50 Uncollected PTT [COAG] Stat Lab 09/23/19 11:50 Uncollected TROPONIN T HIGH SENSITIVITY Stat Lab 09/23/19 11:50 Uncollected URINALYSIS [URINALYSIS] Stat Lab 09/23/19 11:50 Uncollected URINE DRUG SCREEN Stat Lab 09/23/19 11:50 Uncollected Altered Mental Status Stat Oth 09/23/19 11:50 Ordered EKG [EKG] Stat Ther 09/23/19 11:50 Draft Result Diagrams: 09/23/19 13:08 09/23/19 13:08 - REASSESSMENT Reassessment #1 Time Reassessed: 17:22 Status: worsening (dr is at bedside and pt is shaking and tachycardic) - EKG 1 Time of EKG reading by physician:: 12:29 EKG Read and Signed by:: Ander Willis EKG Interpretation (*Must complete 3 of following elements*): Abnormal Rate: 92 Rhythm: atrial flutter with 4:1 av conduction [place]: normal QRS: normal PA Interval: normal ST Wave: normal Prior EKG Comparison: changes noted (nsr in 05/20/19) - XRAY 1 XRAY: Bilateral XRAY Study: Chest Impression: See EMR Report (EXAM: CHEST-PORTABLE 09/23/2019 HISTORY: ams TECHNIQUE: AP portable upright at 1249 COMMENT: There are multiple old rib fractures on the left. There is no evidence of acute cardiac or pulmonary disease. There are no pleural effusions and there is no evidence of pneumothorax. IMPRESSION: No evidence of acute disease. Electronically signed by Flavio Kirby 09/23/2019 12:54 PM 09/23/19 1254 Interpreting Physician: Flavio Kirby MD Dictated Date/Time: 09/23/19 1254 cc: Ander Willis MD;) - CT/MRI 1 CT Study: Head Impression: See EMR Report (EXAM: CT HEAD W/O CONTRAST 09/23/2019 HISTORY: AMS TECHNIQUE: This exam was performed using automated exposure control, adjustment of mA or kV according to patient size, and/or use of iterative reconstruction technique. COMMENT: There is a scalp hematoma on the right over the frontal bone. There is no evidence of mass effect, bleed, or abnormal extr a-axial fluid collection intracranially. The calvarium is intact. The visualized paranasal sinuses are clear. IMPRESSION: Scalp hematoma. No evidence of acute intracranial disease. Electronically signed by Flavio Kirby 09/23/2019 11:51 AM 09/23/19 1151 Interpreting Physician: Flavio Kirby MD Dictated Date/Time: 09/23/19 1150 cc: Ander Willis MD;) - CONSULTS/PCP/HOSPITALIST Notification #1 *Consult/PCP/Hospitalist*: hospitalist dr garcia Time Discussed: 17:25 Consult Disposition: Will see in ED, Admit Departure - Departure Date of Disposition Decision: 09/23/19 Time of Disposition Decision: 17:23 DIAGNOSIS: Hyponatremia Alcohol withdrawal seizure Qualifiers: Complication of substance-induced condition: with unspecified complication Qualified Code(s): F10.239 - Alcohol dependence with withdrawal, unspecified; R56.9 - Unspecified convulsions Fever Qualifiers: Fever type: unspecified Qualified Code(s): R50.9 - Fever, unspecified Disposition: ADMITTED INPATIENT 09 Certified Medical Emergency: Emergent Condition: Stable Referrals and Follow-Ups: None,PCP [Primary Care Provider] - - Critical Care Note This patient required my direct & personal management of CC.: No Attestation - Physician/ GILDARDO Attestation Patient care was provided by Advanced Practice Provider:: No The physician spent face to face time with patient:: Yes Advanced Practice Provider documentation review:: Supervising physician onsite and consulted in the evaluation and care of this patient. The physician did have a face to face encounter with the patient. This chart was documented by the indicated scribe, (Marissa Barber Scribe) and accurately reflects the services I performed and decisions made by me, Ander Seo MD, as attested by the provider's signature.
[2019-09-23] MEDS ORDERED: ZOFRAN IV PRN ×3 (20:09→21:16)
[2019-09-23] MEDS ORDERED: NS 1,000 ML IV SCH (20:09)
[2019-09-23] MEDS ORDERED: ATIVAN IV PRN (20:09)
[2019-09-23] MEDS ORDERED: SODIUM CHLORIDE 0.9% INJ SCH (20:15)
--- NOTE | 2019-09-23 21:35 | HISTORY AND PHYSICAL ---
PRIMARY CARE PROVIDER: None. CHIEF COMPLAINT: Seizures. HISTORY OF PRESENT ILLNESS: Mr. Ross is a 54-year-old gentleman, who carries a past medical history of seizures, alcohol abuse, medical noncompliance, hypertension, who initially came to the ED as a [place] [facility], brought in by EMS. He was staying in a house with people that he did not know. When EMS was questioning the people of this residence, they said that they did not know his name or who he was. They stated that he fell last night. He did have an abrasion to the right side of his forehead. He would follow commands, but he did not speak very often, and they told him that he had just got out of, I believe, nursing home 10 days ago. Upon examination, the patient is lying in the bed. He is awake. He is slow to answer questions, but he does know his name. He knows his date of . He knows he is in [place]. He knows he is at the hospital. He did tell me that he felt nauseous. He thinks he was brought here because he was having seizures. He does not remember the last time he had any alcohol. He did not remember being around any sick contacts. He was very slow to respond. It took him a minute to gather his thoughts. He did at one point look like he was having some difficulty swallowing. However, upon further assessment, he was actually gagging. He was given 1 mg of Ativan in the emergency department for possible seizure activity and placed on seizure precautions. He was given a dose of intravenous fluids. We will place him in the ICU. Continue on seizure precautions, watching closely for alcohol withdrawal and delirium tremens. P.r.n. Ativan. PAST MEDICAL HISTORY: 1. Seizure disorder. 2. Alcohol abuse. Unknown the last time he had a drink. 3. Hypertension. 4. Depression. PAST SURGICAL HISTORY: None. SOCIAL HISTORY: Tobacco use, alcohol use. He is positive for benzodiazepines. HOME MEDICATIONS: He reported he has not taken any seizure medications. REVIEW OF SYSTEMS: Completely negative except for those mentioned in HPI. PHYSICAL EXAMINATION: VITAL SIGNS: Temperature 99.2 degrees, heart rate 99, respirations 16, blood pressure 147/95, O2 is 96% on room air. GENERAL: Mr. Ross is a 54-year-old gentleman who is lying on the stretcher, ill-appearing, but in no acute distress. HEENT: He does have an abrasion to the left side of his forehead. His CT scan did show a scalp hematoma. PERRL. NECK: Supple. Trachea midline. CARDIOVASCULAR: S1, S2 appreciated. No murmurs, gallops, rubs noted. RESPIRATORY: Lung sounds clear. GASTROINTESTINAL: Soft, nontender, nondistended. Hyperactive bowel sounds. EXTREMITIES: Negative for edema. Bilateral pedal pulses are palpable. No clubbing, no cyanosis. NEUROLOGIC: The patient is awake. He does take some time to answer questions, but he will respond. He does look confused at times; however, he knows his name his date of . He knows he is in the hospital. He knows he is in [place]. He believes he came in for a seizure. DIAGNOSTIC DATA: Head CT: Scalp hematoma. No evidence of acute intracranial disease. Chest x- ray: No evidence of acute disease. EKG reads atrial flutter with a 4:1 AV conduction; however, it is a horrible EKG. I believe it is just sinus tachycardia with a lot of artifact. He looks sinus tachycardia on the monitor. We will repeat EKG. LABORATORY DATA: White count 9, hemoglobin and hematocrit 14 and 42, and platelet count is 115,000. Sodium is 124, potassium 3.9, anion gap is 21, BUN is 5, creatinine 0.8, blood glucose is 78, total bilirubin 1.30, AST 125, ALT 62. CK is 990, CKL 31, CK-MB 31.05. Troponin is 33. Plasma lactate 2.5. Urinalysis negative for nitrates, negative for leukocytes, negative for bacteria, moderate blood. Toxicology screen positive for benzodiazepines. Alcohol level is 0. ASSESSMENT AND PLAN: 1. Metabolic versus toxic encephalopathy, possibly related to seizure, benzodiazepines, or alcohol withdrawal. The patient was brought in from a residence who claimed not to know the patient, and were not forthcoming with a lot of information, but they did state he had a fall last night with a bump on his head and called [facility]. I believe he had some seizure-like activity in the emergency department. He was given 1 mg of Ativan, placed on seizure precautions. Will watch him closely in the intensive care unit. 2. Seizure history. We will continue with Ativan as needed for any seizures. Will give Keppra intravenously every 12 hours. He is supposed to be on Lamictal 200 twice daily at home; however, he has been noncompliant. 3. History of alcohol use and abuse. We will watch him closely for withdrawal, delirium tremens. Continue Ativan as needed. Continue with daily banana bags and intravenous fluids. 4. Hyponatremia. Continue with intravenous fluids. Watch his sodium closely. He is mildly hyponatremic at 124. 5. Anion gap metabolic acidosis. Continue with intravenous hydration. 6. Transaminitis, secondary to alcohol. Continue with intravenous fluids. Recheck his liver function tests in the morning. 7. Mild rhabdomyolysis. We will continue with intravenous hydration. Recheck his CKs in the morning. 8. Medical noncompliance. 9. Febrile illness. Flu negative. Chest x-ray is clear. Urinalysis is clear. No source of infection. 10. Further recommendation to follow physician evaluation, laboratory and diagnostic data. Dictated by DAYDAY Green for Ayleen Cobb MD cc: Ayleen Cobb MD
[2019-09-23 21:59] LABS: AGAP 22; ALBUMIN 4.3 g/dL (3.5-5.0); BUN 5 mg/dL (8-22); CALCIUM 9.3 mg/dL (8.8-10.2); CHLORIDE 92 mmol/L (98-107); COSMO 258; CREATININE 0.8 mg/dL (0.7-1.2); ESTIMATED GFR > 60; GLUCOSE 70 mg/dL (70-104); PHOSPHORUS 2.9 mg/dL (2.7-4.5); POTASSIUM 4.2 mmol/L (3.5-5.1); SODIUM 131 mmol/L (136-145); TCO2 17 mmol/L (25-35)
[2019-09-23] MEDS: KEPPRA 500 MG in NS 100 ML IV SCH (22:18)
[2019-09-23] MEDS: NS 1,000 ML IV SCH (22:19)
[2019-09-23 22:39] LABS: CK INDEX 1.8 (0.0-2.5); CK-MB 20.07 ng/mL (0.0-5.0)
[2019-09-24] MEDS: ATIVAN IV PRN ×5 (00:43→23:25)
[2019-09-24 06:20] LABS: BASO# 0.01 X1000 (0.0-0.2); BASO% 0.2 % (0.0-0.8); EOS# 0.04 X1000 (0.0-0.7); EOS% 0.7 % (0.0-10.0); HEMATOCRIT 45.7 % (42.0-52.0); HEMOGLOBIN 15.3 g/dL (14.0-18.0); LYMPH# 1.04 X1000 (1.2-3.4); LYMPH% 18.3 % (20.5-51.1); MCH 29.8 PG (27-31); MCHC 33.5 g/dL (33-37); MCV 89.1 FL (81-99); MONO# 0.95 X1000 (0.11-0.59); MONO% 16.7 % (1.7-9.3); MPV 10.7 FL (7.4-10.4); NEUT# 3.65 X1000 (1.4-6.5); NEUT% 64.1 % (42.2-75.2); PLT 102 X1000 (130-400); RBC 5.13 XMIL (4.7-6.1); RDW 17.3 % (11.5-14.5); WBC 5.69 X1000 (4.8-10.8)
[2019-09-24] MEDS: PROTONIX IV SCH (06:26)
[2019-09-24 06:40] LABS: AGAP 22; ALB/GLOB RATIO 1.1; ALBUMIN 4.3 g/dL (3.5-5.0); ALKALINE PHOSPHATASE 76 U/L (32-122); BUN 5 mg/dL (8-22); CALCIUM 9.7 mg/dL (8.8-10.2); CHLORIDE 93 mmol/L (98-107); COSMO 262; CREATININE 0.8 mg/dL (0.7-1.2); ESTIMATED GFR > 60; GLUCOSE 61 mg/dL (70-104); GOT 97 U/L (10-34); GPT 55 U/L (10-44); MAGNESIUM 2.1 mg/dL (1.5-2.7); POTASSIUM 3.6 mmol/L (3.5-5.1); SODIUM 133 mmol/L (136-145); TCO2 18 mmol/L (25-35); TOTAL BILIRUBIN 1.36 mg/dL (0.20-1.00); TOTAL PROTEIN 8.1 g/dL (6.3-8.3)
[2019-09-24] MEDS ORDERED: PROTONIX IV SCH (07:00)
[2019-09-24] MEDS ORDERED: SODIUM CHLORIDE 0.9% INJ SCH (07:00)
[2019-09-24] MEDS: KEPPRA 500 MG in NS 100 ML IV SCH ×2 (07:38→20:56)
[2019-09-24 08:11] LABS: CK INDEX 1.6 (0.0-2.5); CK-MB 16.65 ng/mL (0.0-5.0)
--- NOTE | 2019-09-24 08:55 | EKG Report ---
Test Performed on : 09/24/2019 06:39:05 AM Test Reason : chest pain Blood Pressure : / mmHG Vent. Rate : 090 BPM Atrial Rate : 090 BPM P-R Int : 158 ms QRS Dur : 080 ms QT Int : 352 ms P-R-T Axes : 070 040 073 degrees QTc Int : 430 ms Normal sinus rhythm. Septal infarct (cited on or before 27-AUG-2018) Abnormal ECG When compared with ECG of 20-MAY-2019 21:40, No significant change was found Confirmed by Alycia Mulligan MD ([id number]) on 09/26/2019 5:29:07 PM
[2019-09-24] MEDS: NS 1,000 ML IV SCH ×2 (11:01→23:25)
[2019-09-24] MEDS: LIBRIUM PO SCH ×2 (16:07→21:00)
--- NOTE | 2019-09-24 16:41 | PROGRESS NOTE ---
DATE: 09/24/2019 SUBJECTIVE: The patient is resting comfortably in bed. No acute events noted overnight. OBJECTIVE: Vital Signs: Temperature 99.4 degrees, blood pressure 108/82, heart rate 107, respirations 21, O2 saturation is 96% on room air. Intake 1.1 L, output 425. General: This is a chronically ill-appearing, elderly male, lying in bed in no acute distress. Heart: S1, S2 normal. Tachycardic. Lungs: Equal air entry bilaterally. No wheezing. No rales. Abdomen: Positive bowel sounds. Soft, nontender, nondistended. Extremities: No edema. No cyanosis. Neurologic: The patient is awake and alert. LABORATORY DATA: White blood cell count 5.6, hemoglobin 15, hematocrit 45, platelets 102,000. Sodium 133, potassium 3.6, chloride 93, CO2 of 18, BUN 5, creatinine 0.8, magnesium 2.1. CK 1052. ASSESSMENT AND PLAN: 1. Metabolic encephalopathy. Continue to monitor closely for improvement. The head CT was unremarkable. 2. Seizure disorder. Continue on Keppra. 3. Acute rhabdomyolysis. Continue with IV fluids. 4. Hyponatremia. Improved. Continue to monitor closely. The patient is on IV fluids. 5. Alcohol abuse. Aware. We will monitor the patient closely for signs and symptoms of withdrawal. We will add Librium. 6. Thrombocytopenia. Continue to monitor closely. 7. Transaminitis. Likely related to the patient's underlying alcohol abuse. It appears to be improving. A hepatitis profile will be ordered. 8. Gastrointestinal prophylaxis. Continue on Protonix. cc: Ayleen Cobb MD [facility]
[2019-09-25] MEDS: LIBRIUM PO SCH ×4 (03:21→21:24)
[2019-09-25] MEDS: ATIVAN IV PRN ×4 (03:21→23:18)
[2019-09-25] MEDS: NS 1,000 ML IV SCH ×2 (05:49→14:16)
[2019-09-25] MEDS: PROTONIX IV SCH (06:09)
[2019-09-25 07:13] LABS: HEMOGLOBIN 12.9 g/dL (14.0-18.0); MCH 29.9 PG (27-31); MCHC 33.1 g/dL (33-37); MCV 90.5 FL (81-99); MPV 11.3 FL (7.4-10.4); RBC 4.31 XMIL (4.7-6.1); RDW 17.3 % (11.5-14.5); WBC 4.39 X1000 (4.8-10.8)
[2019-09-25 07:27] LABS: AGAP 16; ALB/GLOB RATIO 1.1; ALBUMIN 3.8 g/dL (3.5-5.0); ALKALINE PHOSPHATASE 74 U/L (32-122); BUN 6 mg/dL (8-22); CALCIUM 9.2 mg/dL (8.8-10.2); CHLORIDE 100 mmol/L (98-107); CK TOTAL 791 U/L (24-204); COSMO 270; CREATININE 0.8 mg/dL (0.7-1.2); ESTIMATED GFR > 60; GLUCOSE 105 mg/dL (70-104); GOT 66 U/L (10-34); GPT 43 U/L (10-44); POTASSIUM 3.8 mmol/L (3.5-5.1); SODIUM 136 mmol/L (136-145); TCO2 20 mmol/L (25-35); TOTAL BILIRUBIN 1.08 mg/dL (0.20-1.00); TOTAL PROTEIN 7.4 g/dL (6.3-8.3)
[2019-09-25] MEDS: KEPPRA 500 MG in NS 100 ML IV SCH ×2 (08:24→19:23)
--- NOTE | 2019-09-25 11:47 | Diag Imaging Result Doc PS360 ---
EXAM: CHEST-1 VIEW - 09/25/2019 HISTORY: Dyspnea TECHNIQUE: Portable chest one view COMPARISON: 09/23/2019 FINDINGS: Heart size is normal. The lungs appear clear. There is no pleural effusion or pneumothorax identified. There are old left rib fracture deformities noted. IMPRESSION: No evidence of acute disease. Electronically signed by Clyde Montgomery 09/25/2019 11:45 AM
--- NOTE | 2019-09-25 17:54 | PROGRESS NOTE ---
DATE: 09/25/2019 SUBJECTIVE: The patient is awake and alert. No acute events noted overnight. OBJECTIVE: Vital Signs: Temperature 98.7 degrees, blood pressure 122/64, heart rate 76, respirations 13, O2 saturations 100% on room air. General: This is an elderly male lying in bed, in no acute distress. Heart: S1, S2 normal. Regular rate and rhythm. Lungs: Clear to auscultation bilaterally. Abdomen: Positive bowel sounds. Soft, nontender, nondistended. Extremities: No edema. No cyanosis. Neurologic: The patient is alert and oriented x3. LABS: Hemoglobin 12, hematocrit 39, platelets 94,000. Sodium 136, potassium 3.8, chloride 100, CO2 20, BUN 6, creatinine 0.8. CK 791. ASSESSMENT AND PLAN: 1. Metabolic encephalopathy. Resolved. 2. Alcohol abuse. Aware. Continue on Librium. We will monitor closely for withdrawal. 3. Acute rhabdomyolysis. Slowly improving. Continue on IV fluids. 4. Transaminitis. Slowly improving. Hepatitis profile is currently pending. 5. Thrombocytopenia. We will continue to monitor closely. 6. Seizure disorder. Continue on Keppra. We will switch this to oral. 7. Gastrointestinal prophylaxis. Continue on Protonix. 8. Disposition. If the patient does well tonight, we will transfer him to the medical floor tomorrow. cc: Ayleen Cobb MD
[2019-09-26] MEDS: LIBRIUM PO SCH ×3 (03:12→16:00)
[2019-09-26] MEDS: ATIVAN IV PRN ×2 (04:28→20:57)
[2019-09-26] MEDS: NS 1,000 ML IV SCH ×3 (04:29→18:18)
[2019-09-26] MEDS: PROTONIX IV SCH (06:09)
[2019-09-26] MEDS: THERA M PLUS PO SCH (08:38)
[2019-09-26] MEDS: VITAMIN B-1 PO SCH (08:38)
[2019-09-26] MEDS: KEPPRA 500 MG in NS 100 ML IV SCH (08:47)
[2019-09-26 08:49] LABS: HEMATOCRIT 36.5 % (42.0-52.0); HEMOGLOBIN 11.9 g/dL (14.0-18.0); MCH 29.8 PG (27-31); MCHC 32.6 g/dL (33-37); MCV 91.3 FL (81-99); MPV 11.1 FL (7.4-10.4); RDW 17.5 % (11.5-14.5); WBC 4.06 X1000 (4.8-10.8)
[2019-09-26 09:49] LABS: AGAP 14; ALB/GLOB RATIO 1.2; ALBUMIN 3.5 g/dL (3.5-5.0); ALKALINE PHOSPHATASE 56 U/L (32-122); BUN 6 mg/dL (8-22); CALCIUM 9.1 mg/dL (8.8-10.2); CHLORIDE 102 mmol/L (98-107); CK TOTAL 309 U/L (24-204); COSMO 276; CREATININE 0.8 mg/dL (0.7-1.2); ESTIMATED GFR > 60; GLUCOSE 184 mg/dL (70-104); GOT 39 U/L (10-34); GPT 33 U/L (10-44); POTASSIUM 3.6 mmol/L (3.5-5.1); SODIUM 137 mmol/L (136-145); TCO2 21 mmol/L (25-35); TOTAL BILIRUBIN 0.58 mg/dL (0.20-1.00); TOTAL PROTEIN 6.5 g/dL (6.3-8.3)
[2019-09-26 11:52] LABS: HEPATITIS PROFILE ACUTE SEE COMMENTS
--- NOTE | 2019-09-26 15:53 | PROGRESS NOTE ---
DATE: 09/26/2019 SUBJECTIVE: The patient is awake and alert. He states that he feels much better today. No acute events noted overnight. OBJECTIVE: Vital Signs: Temperature 98.6 degrees, blood pressure 143/94, heart rate 83, respirations 17, O2 saturation 97% on room air. General: This is a chronically ill-appearing elderly male sitting in bed in no acute distress. Heart: S1, S2 normal. Regular rate and rhythm. Lungs: Equal air entry bilaterally. No wheezing, no rales, no rhonchi. Abdomen: Positive bowel sounds. Soft, nontender, nondistended. Extremities: No edema, no cyanosis. No calf tenderness. Neuro: The patient is alert and oriented x3. LABS: White blood cell count 4, hemoglobin 11, hematocrit 36, platelets 113,000. Sodium 137, potassium 3.6, chloride 102, CO2 21, BUN 6, creatinine 0.8, glucose 184, calcium 9.1, AST 39, ALT 33, alkaline phosphatase 56, CK 309. ASSESSMENT AND PLAN: 1. Metabolic encephalopathy. Resolved. 2. Alcohol abuse with dependence. Aware. Will start to taper the Librium dosage. 3. History of seizure disorder. Will switch the patient to p.o. Keppra. 4. Hepatitis C. Hep C RNA PCR is currently pending. 5. Transaminitis. Improved. 6. Thrombocytopenia. Slightly improved. 7. Gastrointestinal prophylaxis. Continue on Protonix. 8. Acute rhabdomyolysis. Slowly improving. The patient is currently on normal saline. 9. Disposition. The patient is stable for transfer to the medical floor. Radar Technician has been consulted for assistance with discharge planning. PT has been consulted. cc: Ayleen Cobb MD MTDD
[2019-09-26] MEDS: KEPPRA PO SCH (20:57)
[2019-09-27] MEDS: LIBRIUM PO SCH ×4 (00:13→17:03)
[2019-09-27] MEDS: ATIVAN IV PRN ×2 (00:56→20:57)
[2019-09-27] MEDS: NS 1,000 ML IV SCH ×3 (03:11→16:20)
[2019-09-27] MEDS: PROTONIX IV SCH (06:23)
[2019-09-27 08:20] LABS: AGAP 12; ALB/GLOB RATIO 1.3; ALBUMIN 3.7 g/dL (3.5-5.0); ALKALINE PHOSPHATASE 58 U/L (32-122); BUN 7 mg/dL (8-22); CALCIUM 9.2 mg/dL (8.8-10.2); CHLORIDE 101 mmol/L (98-107); CK TOTAL 208 U/L (24-204); COSMO 271; CREATININE 0.7 mg/dL (0.7-1.2); ESTIMATED GFR > 60; GLUCOSE 121 mg/dL (70-104); GOT 33 U/L (10-34); GPT 32 U/L (10-44); POTASSIUM 3.8 mmol/L (3.5-5.1); SODIUM 136 mmol/L (136-145); TCO2 23 mmol/L (25-35); TOTAL BILIRUBIN 0.51 mg/dL (0.20-1.00); TOTAL PROTEIN 6.6 g/dL (6.3-8.3)
[2019-09-27] MEDS: VITAMIN B-1 PO SCH (08:29)
[2019-09-27] MEDS: KEPPRA PO SCH ×2 (08:30→20:58)
[2019-09-27] MEDS: THERA M PLUS PO SCH (08:30)
[2019-09-27 09:23] LABS: HEMATOCRIT 40.3 % (42.0-52.0); HEMOGLOBIN 13.1 g/dL (14.0-18.0); MCHC 32.5 g/dL (33-37); MCV 92.4 FL (81-99); MPV 10.6 FL (7.4-10.4); RBC 4.36 XMIL (4.7-6.1); RDW 18.2 % (11.5-14.5); WBC 3.95 X1000 (4.8-10.8)
--- NOTE | 2019-09-27 18:27 | PROGRESS NOTE ---
DATE: 09/27/2019 INTERVAL HISTORY: No acute events overnight. He had not had any seizure. SUBJECTIVE: He is feeling stronger. Denies any nausea, vomiting, abdominal pain, he is denying any tremulousness. VITALS: Temperature 97.7 degrees, pulse 83, respiration 14, blood pressure 130/80 saturating 100% room air. PHYSICAL EXAMINATION: He is not in acute distress. Oral cavity is moist. Air entry bilateral equal. No wheeze, rhonchi, crackles. S1, S2 normal. No murmur, rub or gallop.Abdomen: Soft, nontender. No lower extremity edema. He is alert and oriented x3. LABS: Suggestive of WBC of 3.9, hemoglobin 13.1, platelet 123,000, BUN 7, creatinine 0.7. No positive microbiological or new imaging data. On presentation head CT had a scalp hematoma without evidence of mass effect, chest x-ray did not have evidence acute disease. ASSESSMENT AND PLAN: 1. Acute encephalopathy on presentation likely due to alcohol abuse, alcohol use disorder and possibly alcohol withdrawal seizures now resolved. He is alert and oriented x3. He is still feeling weak though, I will continue him on levetiracetam for seizure medication, multivitamin and thiamine. He was counseled about stopping alcohol and he understood it. I will decrease the Librium dose and give him intravenous lorazepam as needed. 2. New diagnosis of hepatitis C. Patient did report being transfused with blood products about 40 years ago which could have been the source of his hepatitis C. He denies ever using any intravenous drug use. I will follow up with HCV RNA. I discussed with him about measure of hepatitis C and need for regular followup outpatient . 3. Thrombocytopenia and transaminitis now improving. 4. Acute rhabdomyolysis due to fall on presentation possibly due to seizures as well now improving. DISPOSITION: PT has been consulted. Patient was able to walk in the hallway though he is still feeling weak so I will keep him overnight and will plan discharge in next 24 hours, he is in agreement. cc: Paul Whitney MD
[2019-09-27] MEDS ORDERED: LIBRIUM PO SCH (21:00)
[2019-09-28] MEDS: VITAMIN B-1 PO SCH (08:31)
[2019-09-28] MEDS: KEPPRA PO SCH (08:32)
[2019-09-28] MEDS: THERA M PLUS PO SCH (08:32)
[2019-09-28 08:36] LABS: HEMATOCRIT 40.1 % (42.0-52.0); HEMOGLOBIN 12.8 g/dL (14.0-18.0); MCH 29.8 PG (27-31); MCHC 31.9 g/dL (33-37); MCV 93.5 FL (81-99); MPV 10.6 FL (7.4-10.4); RBC 4.29 XMIL (4.7-6.1); RDW 18.4 % (11.5-14.5); WBC 4.01 X1000 (4.8-10.8)
[2019-09-28 09:20] LABS: AGAP 10; ALB/GLOB RATIO 1.3; ALBUMIN 3.9 g/dL (3.5-5.0); ALKALINE PHOSPHATASE 59 U/L (32-122); BUN 6 mg/dL (8-22); CALCIUM 9.4 mg/dL (8.8-10.2); CHLORIDE 101 mmol/L (98-107); COSMO 276; CREATININE 0.8 mg/dL (0.7-1.2); ESTIMATED GFR > 60; GLUCOSE 108 mg/dL (70-104); GOT 42 U/L (10-34); GPT 35 U/L (10-44); SODIUM 139 mmol/L (136-145); TCO2 28 mmol/L (25-35); TOTAL BILIRUBIN 0.47 mg/dL (0.20-1.00); TOTAL PROTEIN 6.9 g/dL (6.3-8.3)
[2019-09-28] MEDS: ATIVAN IV PRN (10:01)
[2019-09-28 13:03] VITALS: BP 117/68
--- NOTE | 2019-09-29 08:12 | DISCHARGE SUMMARY ---
ADMISSION DATE: 09/23/2019 DISCHARGE DATE: 09/28/2019 DISCHARGE DISPOSITION: The patient is getting discharged and he is planning to live with his friends. DISCHARGE CONDITION: Hemodynamically stable. He does not have any clinical features of alcohol withdrawal. He has not had any seizures since hospital stay. He is alert and oriented x3. He is counseled about stopping use of alcohol and taking his seizure medications regularly. DISCHARGE DIAGNOSES: 1. Acute encephalopathy. 2. Likely alcohol withdrawal seizure. 3. Alcohol abuse. 4. New diagnosis of hepatitis C, pending HCV viral load. The patient was advised to have follow up with regular doctor to have a discussion of HCV RNA and possible treatment. He was cautioned against the risk of liver cirrhosis associated with hepatitis C virus. 5. Thrombocytopenia and transaminitis. 6. Acute rhabdomyolysis. OTHER DIAGNOSES: 1. History of alcohol abuse. 2. History of seizure. 3. Essential hypertension. 4. Depression. DISCHARGE MEDICATIONS: 1. Lamotrigine 200 mg b.i.d. 2. Multivitamin 1 tablet daily. 3. Thiamine 100 mg daily. VITALS: At the time of discharge temperature 97.6 degrees, pulse 70, respiratory rate 17, blood pressure 117/68, saturating 99% room air. PHYSICAL EXAMINATION: Not in acute distress. HEENT: Oral cavity is moist. Respiratory: No wheezing or crackles. Cardiac: S1 normal. No gallop. Abdomen: Soft, nontender. Extremities: No lower extremity edema. Neurologic: Mr. Ross is alert and oriented x3. LABS: At the time of discharge WBC 4000, hemoglobin 12.8, platelet 146,000. BUN 6, creatinine 0.8. His creatine kinase on admission was as high as 1100 which improved to 200 at the time of discharge. Microbiology: Influenza screen was negative. IMAGING: Head CT on presentation had a scalp hematoma without any evidence of acute intracranial disease. Chest x-ray on September 25 did not have evidence of acute disease. Electrocardiogram on presentation had normal sinus rhythm. Septal infarct. HOSPITAL COURSE SUMMARY: Mr. Ross is a 54 years old man who presented on 09/23/2019 with chief complaints of a seizure. He does have prior history of seizures, alcohol abuse, medical noncompliance. He was staying in a house with people that he did not know. When the EMS was called in at that residence, the residents told them that they did not know his name and who he was. He apparently fell down the night prior to current presentation and had abrasion on the forehead and they had informed that he had gotten out of [facility] 10 days ago. When he came to the emergency room, he was found to have temperature of 100.5 degrees, pulse of 95, respiratory rate of 22 and blood pressure of 150/107. He was saturating 97% on room air. His initial labs did not have leukocytosis, but had WBC of 9.5. He has thrombocytopenia with platelets of 115,000. He had normal kidney function. He was found to have mild transaminitis. He was diagnosed with acute encephalopathy related to alcohol withdrawal seizure. He also had some seizure-like activity in the emergency room. He was started on treatment for alcohol withdrawal and was admitted to the hospital for further management. His head CT was unremarkable. With intravenous fluid resuscitation, intravenous thiamine his condition improved. His mental status also improved. He was initially started on Keppra. He did not have any more seizure episodes and later on he was transferred to routine medical floor where he had uncomplicated course. It was decided to discharge him. At the time of discharge, he is provided prescription of lamotrigine that he takes for seizures. He was also provided prescription of thiamine multivitamin and was advised to have a followup appointment with regular physician. 25 minutes were spent discharging this patient. cc: Paul Whitney MD
[2019-09-29 14:04] LABS: HCV BY PCR SEE COMMENTS
== END 2019-09-28 16:46 | disposition home or self-care (01) | DRG 896 ==
LOC: ED 11:06 → EDIPHOLD 18:41 → SUATTDRO 18:41 → ICU 22:59 → 3N 09-27 00:35
PROVIDERS: ATTEND Internal Medicine

== ENCOUNTER 2019-10-18 09:31 | Inpatient (IN) ==
[2019-10-18] MEDS ORDERED: M.V.I.-12 10 ML, FOLIC ACID 1 MG, MAGNESIUM SULFATE 1 GM, THIAMINE 100 MG in NS 1,000 ML IV ONE ×2 (10:20→12:00)
[2019-10-18 11:09] LABS: URINE SOURCE CLEAN CATCH
[2019-10-18 11:19] LABS: BASO# 0.01 X1000 (0.0-0.2); BASO% 0.1 % (0.0-0.8); EOS# 0.04 X1000 (0.0-0.7); EOS% 0.3 % (0.0-10.0); HEMATOCRIT 41.8 % (42.0-52.0); IMM GRAN# 0.06 X1000 (0.0-0.04); IMM GRAN% 0.5 % (0.0-0.5); LYMPH# 1.38 X1000 (1.2-3.4); LYMPH% 11.2 % (20.5-51.1); MCH 30.2 PG (27-31); MCHC 35.9 g/dL (33-37); MCV 84.3 FL (81-99); MONO# 1.51 X1000 (0.11-0.59); MONO% 12.2 % (1.7-9.3); MPV 10.2 FL (7.4-10.4); NEUT# 9.33 X1000 (1.4-6.5); NEUT% 75.7 % (42.2-75.2); PLT 188 X1000 (130-400); RBC 4.96 XMIL (4.7-6.1); RDW 16.6 % (11.5-14.5); WBC 12.33 X1000 (4.8-10.8)
[2019-10-18 11:23] LABS: BILIRUBIN URINE NEGATIVE (NEGATIVE); BLOOD URINE NEGATIVE (NEGATIVE); COLOR YELLOW; GLUCOSE URINE NEGATIVE (NEGATIVE); KETONE URINE 20 mg/dL (NEGATIVE); LEUKOCYTES URINE NEGATIVE (NEGATIVE); NITRITE URINE NEGATIVE (NEGATIVE); PH URINE 6.5; PROTEIN URINE TRACE mg/dL (NEGATIVE); SP GRAVITY URINE 1.008; TURBIDITY URINE CLEAR (CLEAR); UROBILINOGEN URINE NORMAL (NORMAL)
[2019-10-18 11:27] LABS: UR EPITHELIAL CELLS <10 /HPF (<10); URINE BACTERIA NEGATIVE /HPF; URINE RBC <10 /HPF (<10); URINE WBC <10 /HPF (<10)
[2019-10-18 11:35] LABS: UR AMPHETAMINES QUAL NONE DETECTED (NONE DETECT); UR BARBITUATES QUAL NONE DETECTED (NONE DETECT); UR BENZODIAZEPIN QUAL PRESUMPTIVE POSITIVE (NONE DETECT); UR CANNABINOIDS QUAL NONE DETECTED (NONE DETECT); UR COCAINE QUAL NONE DETECTED (NONE DETECT); UR METHADONE QUAL NONE DETECTED (NONE DETECT); UR METHAMPHETAMINE QUAL NONE DETECTED (NONE DETECT); UR OPIATES QUAL NONE DETECTED (NONE DETECT); UR OXYCODONE QUAL NONE DETECTED (NONE DETECT); UR PCP QUAL NONE DETECTED (NONE DETECT); UR PROPOXYPHENE QUAL NONE DETECTED (NONE DETECT); UR TCA QUAL NONE DETECTED (NONE DETECT)
[2019-10-18 11:39] LABS: URINE CASTS NONE SEEN; URINE CRYSTALS NONE SEEN; URINE SMALL ROUND CELLS NONE SEEN; URINE YEAST NONE SEEN
[2019-10-18 12:29] LABS: ESTIMATED GFR > 60
[2019-10-18 12:36] LABS: AGAP 17; ALBUMIN 4.8 g/dL (3.5-5.0); ALKALINE PHOSPHATASE 69 U/L (32-122); BUN 6 mg/dL (8-22); CALCIUM 9.4 mg/dL (8.8-10.2); CHLORIDE 77 mmol/L (98-107); COSMO 231; CREATININE 0.7 mg/dL (0.7-1.2); GLUCOSE 81 mg/dL (70-104); GOT 108 U/L (10-34); GPT 44 U/L (10-44); POTASSIUM 4.5 mmol/L (3.5-5.1); TCO2 22 mmol/L (25-35); TOTAL PROTEIN 8.3 g/dL (6.3-8.3)
[2019-10-18 12:38] LABS: SODIUM 116 mmol/L (136-145)
[2019-10-18] MEDS ORDERED: NS 1,000 ML IV ONE (12:38)
[2019-10-18] MEDS ORDERED: ATIVAN IV ONE (13:22)
--- NOTE | 2019-10-18 16:18 | HISTORY AND PHYSICAL ---
PRIMARY CARE PROVIDER: None. CHIEF COMPLAINT: "I am sick, I have seizures." HISTORY OF PRESENT ILLNESS: Mr. Ross is a 54-year-old male who carries a past medical history of seizures, alcohol abuse, medical noncompliance, hypertension, who came to the ED because "I am sick and I have seizures." I asked him if he had any seizures today. He said no. I asked him what brought him to the ED, he said, "I am sick and I need help." He reports he is supposed to take seizure medicines however he does not. He has been drinking 1 case of Budweiser per day. However, he reports he can no longer afford it. Tobacco abuse as well, as much as he can get his hands on. He also states that he will drink alcohol as much as he can get his hands on, as well. He reports that he has seizures nightly. He could not really give me any specific symptoms that brought him in to the ED. However, he is somewhat slow and a little bit agitated to respond, however he knows his name. He knows his date of . He knows the current date, year, and time. He knows what hospital he is in. He knows who the president is and he knows current events. Workup in the ED revealed hyponatremia at 116. He was positive for benzodiazepines and had an alcohol level of 3. He did not remember his last drink. Again, he will be transferred to [facility] ICU for seizure precautions, hyponatremia and possible alcohol withdrawal. PAST MEDICAL HISTORY: Seizure disorder, alcohol use and abuse. Unknown the last time he had a drink. However, he states that he drinks at least a case of Budweiser per day or as much as he can get his hands on, hypertension, depression, medical noncompliance, tobacco use and abuse as much as he can get his hands on. PAST SURGICAL HISTORY: Denied. SOCIAL HISTORY: Tobacco and alcohol use. He is positive for benzodiazepines. His alcohol level was 3. It is unsure if he lives alone at this time or if he is actually staying with a friend. HOME MEDICATIONS: Need to be compiled. However, he reports he does not take them. REVIEW OF SYSTEMS: Completely negative except for those mentioned in HPI. PHYSICAL EXAMINATION: VITAL SIGNS: Temperature 98.1 degrees, heart rate 89, respirations 12, blood pressure 154/89, O2 is 99% on room air. GENERAL: Mr. Ross is a 54-year-old gentleman who is sitting up in the stretcher, unkept, but in no acute distress. HEENT: Atraumatic, normocephalic. PERRL. NECK: Supple, trachea midline, port dentition. CARDIOVASCULAR: S1, S2 appreciated. No murmurs, gallops, rubs noted. RESPIRATORY: Lung sounds clear bilaterally. GI: Soft, nontender, nondistended. Positive bowel sounds x4 quads. EXTREMITIES: Lower extremities negative for edema. NEUROLOGIC: He is somewhat off, however, he is alert and oriented x4. Knows the president, current events, but will get agitated as well. DIAGNOSTIC DATA: None. LABORATORY DATA: White count 12, hemoglobin and hematocrit 15 and 41, platelet count is 188,000. Sodium 116, potassium 4.5, BUN 6, creatinine 0.7, total bilirubin is 1.20, AST 108. Urinalysis is negative for nitrates, negative for bacteria. serum alcohol level is 3. Positive for benzodiazepines. ASSESSMENT AND PLAN: 1. Severe hyponatremia, probably secondary to his beer potomania. He was given a liter of fluid in the ED. We will continue with IV fluids at 75. We will check serial sodium levels as to not bring it up too quickly. 2. Hyperchloremia. Continue with IV hydration. 3. anion gap metabolic acidosis. We will continue with IV hydration. 4. Clinically dehydrated. We will continue with IV fluids. 5. Seizure disorder, not taking any medications. We will place him on seizure precautions, start IV Keppra, Ativan for breakthrough seizures. 6. Alcohol use and abuse. The patient was unsure of his last drink. Serum alcohol level was 3. We will start him on alcohol withdrawal protocol, watching closely for delirium tremens. 7. Elevated transaminitis secondary to alcohol. We will recheck in the a.m. 8. Medical noncompliance. 9. Further recommendation to follow physician evaluation, laboratory and diagnostic data. Dictated by DAYDAY Green for Ian Sheikh MD cc: Ian Sheikh MD [facility]
--- NOTE | 2019-10-18 17:01 | PROVIDER DOCUMENTATION ---
This chart was entered by Marissa Barber Scribe, acting as scribe for Db Cabrera CRNP. HPI-Neurological Disorder - General Chief Complaint: Seizure Stated Complaint: SEIZURE Time Seen by Provider: 10/18/19 09:55 Source: patient Allergies/Adverse Reactions: Patient Allergies Allergy/AdvReac Type Severity Reaction Status Date / Time No Known Drug Allergies Allergy Unknown Verified 09/25/19 14:49 Home Medications: Home Medication List Medication Instructions Recorded Confirmed Last Taken Type Lamotrigine [Lamictal] 200 mg PO BID #60 tab 09/28/19 Unknown Rx Multivit,Fe,Ca,FA & Min [Thera M 1 ea PO DAILY #30 tab 09/28/19 Unknown Rx Plus] Thiamine [Vitamin B-1] 100 mg PO DAILY #30 tab 09/28/19 Unknown Rx - History of Present Illness-Neuro Nature of Presenting Problem: 54 yowm presents to the ed via pov where "Sleepy dropped me off" when asked the pt why he is here pt replies 'I don't know, they said if I cant work I cant stay there anymore." he reports he has seizures daily and does not take his seizure medication due to not being able to afford the cost. pt is a daily alcohol drinker and sts last drink was last night. unsure when last seizure was because the person that dropped off pt did not stay. pt denies pain on exam Severity: reports: mild Onset/Duration: reports: unsure Timing: reports: intermittent Context: reports: seizure activity (possible) Any recent trauma/injury?: reports: none New weakness or altered sensation location:: reports: none Cognitive Baseline: alert, oriented x3 Gait Baseline: walks without assistance Associated Symptoms: reports: confusion, seizures. denies: headache, decreased ability to walk or stand, chest pain, fever/chills, nausea, slurred speech, vomiting, vision changes Similar Symptoms Previously?: Yes (hx of seizures) Recently seen or treated by another doctor?: No - Seizure First time to have a seizure?: No Witnessed seizure?: No (unsure ) Episode details: reports: unknown duration, unknown number Episode Frequency: chronic episodes Status Epilepticus: No Preceding symptoms/context:: recent alcohol or drug use Post-ictal Symptoms: reports: confusion Seizure related injury: none Review of Systems - Adult - REVIEW OF SYSTEMS - ADULT ROS:: limited per condition Constitutional: denies: chills, fever Eyes: reports: no symptoms reported Ears, Nose, Mouth & Throat: reports: no symptoms reported Cardiovascular: denies: chest pain, palpitations Respiratory: denies: cough, shortness of breath, wheezing Gastrointestinal: denies: abdominal pain, diarrhea, nausea, vomiting Genitourinary: reports: no symptoms reported Musculoskeletal: reports: no symptoms reported Integumentary: reports: no symptoms reported Neurological: reports: see HPI, seizure. denies: ataxia, dizziness/vertigo, headache/migraines, slurred speech, tremors Psychiatric: reports: no symptoms reported Endocrine: reports: no symptoms reported Hematologic/Lymphatic: reports: no symptoms reported Allergic/Immunologic: reports: no symptoms reported All Other Systems: Reviewed and Negative Past History - Adult - PAST MEDICAL HISTORY-ADULT Review of Records: reports: Old Records Reviewed, Nursing Assessment Review, Medications Reviewed, Social history reviewed & non-contributory. Major Childhood Illnesses: reports: denies history Cardiovascular: reports: HTN Respiratory: reports: denies history Gastrointestinal: reports: denies history Genitourinary: reports: denies history Musculoskeletal: reports: denies history Hand Dominance: Right Handed Neurological: reports: Seizures/Epilepsy Psychiatric: reports: depression, other (alcoholism) Endocrine/Immune: reports: denies history Other Conditions: reports: denies history Additional History: alcohol abuse - PRIOR SURGERIES/PROCEDURES Surgical/Procedure History: reports: reviewed, not pertinent - PRIOR HOSPITALIZATIONS Prior Hospitalizations: reports: none - IMMUNIZATION STATUS Childhood Immunizations: See Nurse Assessment Flu Vaccine: See Nurse Assessment - FAMILY HISTORY Family History: reviewed, not pertinent - SOCIAL HISTORY Smoking: denies Substance Use: alcohol Alcohol Use Frequency: every day Number of drinks per typical drinking period:: 5-10 drinks Living Situation: homeless Physical Exam- Neurological - Physical Exam-Neuro Exam Limited by: pt has some mild confusion Initial Vital Signs Reviewed: Yes General Appearance: alert, anxious, other (confusion) Eye Exam: bilateral eye: normal inspection, PERRL, EOMI HENMT: moist mucous membranes. negative: angioedema Head Injury: no evidence of injury Neck: non-tender, full range of motion, supple, normal inspection Respiratory: chest non-tender, lungs clear, normal breath sounds, no respiratory distress, no accessory muscle use Cardiovascular: normal peripheral pulses, regular rate, rhythm Abdominal Exam: normal bowel sounds, non tender, soft Lymphatic: no adenopathy Extremity: non-tender, normal gait, normal inspection barrel roller Exam: normal hearing, normal speech, PERRL. negative: facial droop Coordination/Gait: normal gait Motor/Sensory: no motor deficit, no sensory deficit Neurologic: grossly normal Integumentary: normal color, normal turgor, warm/dry Psych/Mental Status: normal mood/affect, normal thought content, normal thought process - Glascow Coma Scale Best Eye Response: (4) open spontaneously Best Verbal Response: (4) confused conversation Best Motor Response: (6) obeys commands Total Glascow Score: 14 Progress - PLAN OF CARE/RESULTS Progress/Plan/Lab Results: Vital Signs - 8 hr 10/18/19 09:37 10/18/19 11:30 10/18/19 12:45 Temperature 98.1 F Pulse Rate 89 88 89 Respiratory Rate 18 13 12 Blood Pressure 137/90 147/87 154/89 O2 Sat by Pulse Oximetry 97 98 99 Laboratory Results - last 24 hr 10/18/19 10/18/19 10/18/19 11:07 11:07 11:07 WBC 12.33 H RBC 4.96 Hgb 15.0 Hct 41.8 L MCV 84.3 MCH 30.2 MCHC 35.9 RDW Std Deviation 16.6 H Plt Count 188 MPV 10.2 Immature Gran % (Auto) 0.5 Neut % (Auto) 75.7 H Lymph % (Auto) 11.2 L Foster % (Auto) 12.2 H Eos % (Auto) 0.3 Baso % (Auto) 0.1 Immature Gran # (Auto) 0.06 H Neut # (Auto) 9.33 H Lymph # (Auto) 1.38 Foster # (Auto) 1.51 H Eos # (Auto) 0.04 Baso # (Auto) 0.01 Sodium Potassium Chloride Carbon Dioxide Anion Gap BUN Creatinine Estimated GFR/1.73 m2 BUN/Creatinine Ratio Glucose Calculated Osmolality Calcium Total Bilirubin AST ALT Alkaline Phosphatase Total Protein Albumin Globulin Albumin/Globulin Ratio Plasma Lactate Urine Source CLEAN CATCH Urine Color YELLOW Urine Turbidity CLEAR Urine pH 6.5 Ur Specific [place] 1.008 Urine Protein TRACE A Ur Glucose (Stick) NEGATIVE Ur Ketones (Stick) 20 A Urine Blood NEGATIVE Urine Nitrite NEGATIVE Urine Bilirubin NEGATIVE Urobilinogen Dipstick NORMAL Urine Leukocytes NEGATIVE Urine WBC (Auto) <10 Urine RBC (Auto) <10 U Epithel Cells (Auto) <10 Urine Bacteria (Auto) NEGATIVE Urine Crystals NONE SEEN Small Round Cells NONE SEEN Urine Casts NONE SEEN Urine Yeast-like Cells NONE SEEN Urine Opiates Screen NONE DETECTED Ur Oxycodone Screen NONE DETECTED Urine Methadone Screen NONE DETECTED U Propoxyphene Qual NONE DETECTED Ur Barbituates Screen NONE DETECTED Ur Tricyclics Screen NONE DETECTED Ur Phencyclidine Scrn NONE DETECTED Ur Amphetamines Screen NONE DETECTED U Methamphetamines Scrn NONE DETECTED U Benzodiazepines Scrn PRESUMPTIVE POSITIVE A Urine Cocaine Screen NONE DETECTED U Cannabinoids Screen NONE DETECTED Plasma/Serum Ethyl Alc 10/18/19 10/18/19 10/18/19 12:00 12:00 12:00 WBC RBC Hgb Hct MCV MCH MCHC RDW Std Deviation Plt Count MPV Immature Gran % (Auto) Neut % (Auto) Lymph % (Auto) Foster % (Auto) Eos % (Auto) Baso % (Auto) Immature Gran # (Auto) Neut # (Auto) Lymph # (Auto) Foster # (Auto) Eos # (Auto) Baso # (Auto) Sodium 116 L* Potassium 4.5 Chloride 77 L Carbon Dioxide 22 L Anion Gap 17 BUN 6 L Creatinine 0.7 Estimated GFR/1.73 m2 > 60 BUN/Creatinine Ratio 9 Glucose 81 Calculated Osmolality 231 Calcium 9.4 Total Bilirubin 1.20 H AST 108 H ALT 44 Alkaline Phosphatase 69 Total Protein 8.3 Albumin 4.8 Globulin 4.0 Albumin/Globulin Ratio 1.0 Plasma Lactate 0.7 Urine Source Urine Color Urine Turbidity Urine pH Ur Specific [place] Urine Protein Ur Glucose (Stick) Ur Ketones (Stick) Urine Blood Urine Nitrite Urine Bilirubin Urobilinogen Dipstick Urine Leukocytes Urine WBC (Auto) Urine RBC (Auto) U Epithel Cells (Auto) Urine Bacteria (Auto) Urine Crystals Small Round Cells Urine Casts Urine Yeast-like Cells Urine Opiates Screen Ur Oxycodone Screen Urine Methadone Screen U Propoxyphene Qual Ur Barbituates Screen Ur Tricyclics Screen Ur Phencyclidine Scrn Ur Amphetamines Screen U Methamphetamines Scrn U Benzodiazepines Scrn Urine Cocaine Screen U Cannabinoids Screen Plasma/Serum Ethyl Alc 3 H Orders Category Date Time Status Seizure Precautions ROUTINE Care 10/18/19 10:23 Active ALCOHOL BLOOD Stat Lab 10/18/19 12:00 Completed CBC WITH DIFF [HEME] Stat Lab 10/18/19 11:07 Completed COMPREHENSIVE METABOLIC PANEL [CHEM] Stat Lab 10/18/19 12:00 Completed LACTATE, PLASMA [CHEM] Stat Lab 10/18/19 12:00 Completed URINALYSIS W/POSS RFLX CULT [URINALYSIS] Stat Lab 10/18/19 11:07 Completed URINE DRUG SCREEN PL Stat Lab 10/18/19 11:07 Completed URINE MANUAL MICROSCOPIC [URINALYSIS] Stat Lab 10/18/19 11:07 Completed 0.9% Sodium Chloride Inj [Ns] 1,000 ml Med 10/18/19 12:38 Discontinued IV 999 mls/hr Lorazepam [Ativan] Med 10/18/19 13:22 Discontinued 1 mg IV NOW ONE Mvi [M.v.i.-12] 10 ml Med 10/18/19 10:20 Discontinued Folic Acid 1 mg Magnesium Sulfate 1 gm Thiamine 100 mg 0.9% Sodium Chloride Inj [Ns] 1,000 ml IV NOW Mvi [M.v.i.-12] 10 ml Med 10/18/19 12:00 Discontinued Folic Acid 1 mg Magnesium Sulfate 1 gm Thiamine 100 mg 0.9% Sodium Chloride Inj [Ns] 1,000 ml IV NOW Transfer/Admit Order [TRANSFER] Routine Transfer 10/18/19 13:06 Ordered Result Diagrams: 10/18/19 11:07 10/18/19 12:00 - REASSESSMENT Reassessment #1 Time Reassessed: 11:05 (Pt refuses CT scan) Reassessment #2 Time Reassessed: 12:43 (discussed results and tx need for admission with pt, Pt agrees to admission.) - CONSULTS/PCP/HOSPITALIST Notification #1 *Consult/PCP/Hospitalist*: Dr Brown Time Discussed: 12:43 Consult Disposition: Will see in ED, Admit Departure - Departure Date of Disposition Decision: 10/18/19 Time of Disposition Decision: 12:44 DIAGNOSIS: Hyponatremia, Seizure, Altered mental status, Alcoholism Disposition: ADMITTED INPATIENT 09 Certified Medical Emergency: Emergent Condition: Fair - Critical Care Note This patient required my direct & personal management of CC.: No Attestation - Physician/ GILDARDO Attestation Patient care was provided by Advanced Practice Provider:: Yes Advanced Practice Provider:: Db Cabrera Advanced Practice Provider documentation review:: The Mid-level provider blayne alvarado, treatment plan and medical decision making was reviewed by the physician who agrees with all treatment and medical decision making by the MLP. The physician spent face to face time with patient:: No Advanced Practice Provider documentation review:: Supervising physician onsite and consulted in the evaluation and care of this patient. The physician did not have a face to face encounter with the patient. This chart was documented by the indicated scribe, (Marissa Barber Scribe) and accurately reflects the services I performed and decisions made by , Db Cabrera CRNP, as attested by the provider's signature.
[2019-10-18] MEDS ORDERED: ATARAX PO PRN (18:27)
[2019-10-18] MEDS ORDERED: BENTYL PO PRN (18:27)
[2019-10-18] MEDS ORDERED: ZOFRAN IV PRN (18:27)
[2019-10-18] MEDS ORDERED: ROBAXIN PO PRN (18:27)
[2019-10-18] MEDS ORDERED: TYLENOL PO PRN (18:27)
[2019-10-18] MEDS: NS 1,000 ML IV SCH (19:26)
[2019-10-18] MEDS: LIBRIUM PO SCH (19:36)
[2019-10-18] MEDS: KEPPRA 500 MG in NS 100 ML IV SCH (19:41)
[2019-10-18] MEDS: ATIVAN IV PRN (23:49)
--- NOTE | 2019-10-19 00:20 | HISTORY AND PHYSICAL ---
ADDENDUM: Patient presented to the hospital with confusion, disorientation. States "sleepy" States he has had seizures recently. When asked how much alcohol he drinks, he replies as much as he can get. His blood pressures are elevated. Sodium is markedly low at 116, AST is elevated at 128, ALT 44, t. bilirubin is 1.2. We are going to admit to the hospital, place on alcohol withdrawal protocols. Will follow. He will continue the normal saline. Follow his sodiums. Further orders as needed. cc: Ian Sheikh MD MTD
[2019-10-19] MEDS: LIBRIUM PO SCH ×4 (01:12→19:42)
[2019-10-19 03:33] LABS: HEMATOCRIT 49.6 % (42.0-52.0); HEMOGLOBIN 17.2 g/dL (14.0-18.0); RBC 5.71 XMIL (4.7-6.1); WBC 3.71 X1000 (4.8-10.8)
[2019-10-19 03:34] LABS: BASO# 0.01 X1000 (0.0-0.2); BASO% 0.3 % (0.0-0.8); EOS# 0.03 X1000 (0.0-0.7); EOS% 0.8 % (0.0-10.0); LYMPH# 0.99 X1000 (1.2-3.4); LYMPH% 26.7 % (20.5-51.1); MCH 30.1 PG (27-31); MCHC 34.7 g/dL (33-37); MCV 86.9 FL (81-99); MONO# 0.46 X1000 (0.11-0.59); MONO% 12.4 % (1.7-9.3); MPV 10.7 FL (7.4-10.4); NEUT# 2.22 X1000 (1.4-6.5); NEUT% 59.8 % (42.2-75.2); PLT 134 X1000 (130-400); RDW 17.8 % (11.5-14.5)
[2019-10-19 04:47] LABS: AGAP 18; ALB/GLOB RATIO 1.7; ALBUMIN 5.2 g/dL (3.5-5.0); ALKALINE PHOSPHATASE 74 U/L (32-122); BUN 5 mg/dL (8-22); CALCIUM 9.9 mg/dL (8.8-10.2); CHLORIDE 90 mmol/L (98-107); COSMO 249; CREATININE 0.7 mg/dL (0.7-1.2); ESTIMATED GFR > 60; GLUCOSE 70 mg/dL (70-104); GOT 89 U/L (10-34); GPT 45 U/L (10-44); MAGNESIUM 2.1 mg/dL (1.5-2.7); POTASSIUM 4.4 mmol/L (3.5-5.1); SODIUM 126 mmol/L (136-145); TCO2 18 mmol/L (25-35); TOTAL PROTEIN 8.3 g/dL (6.3-8.3)
[2019-10-19] MEDS: KEPPRA 500 MG in NS 100 ML IV SCH ×2 (06:11→17:39)
[2019-10-19] MEDS ORDERED: SAMSCA PO ONE (07:03)
--- NOTE | 2019-10-19 07:13 | PROGRESS NOTE ---
DATE: 10/19/2019 SUBJECTIVE: Patient reports feeling fine. According to nursing staff, he has been confused on and off, but not belligerent or combative. No episodes of seizure reported here in the hospital. He does not remember the doses of lamotrigine or the last time that he has taken this medication. He is being seen by Dr. aMrtinez for this condition. OBJECTIVE: Vital Signs: Temperature 98.2 degrees, heart rate 79, respiratory 15, blood pressure 136/85, O2 saturation 100% on room air. General Examination: This is a 54-year-old male, lying in bed in no acute distress. Cardiovascular exam: S1, S2 heard. No murmurs, gallops or rubs. Regular rate and rhythm. Respiratory exam: Clear bilaterally to auscultation. No work of breathing or using accessory muscles. Abdomen: Soft, nontender to palpation. Bowel sounds present. No organomegaly. Extremities: No clubbing, cyanosis, or edema. Peripheral pulses present in both legs. Neurological exam: Patient is awake. His speech is slow. Oriented to place, person. Moves 4 extremities spontaneously. LABORATORY DATA: White cell count 3.71, hemoglobin 17.2, hematocrit 49.6, platelets 134. BMP shows potassium 4.4 and sodium 126. Total bilirubin 1.2, AST 89, ALT 45. UDS positive for benzodiazepine. Alcohol level is 3. ASSESSMENT AND PLAN: 1. Alcohol withdrawal. Patient is a drinker. He drinks beer most of the time, almost on a daily basis. At this point, he has been admitted to the intensive care unit for this condition. He apparently has seizures as well. Currently, he is on Librium protocol for alcohol withdrawal and Ativan as needed as well. He is receiving intravenous fluids in this case. His normal saline is 75 mL/hour plus MVI. I think at this point we will continue with the same management. 2. Seizures. The patient is supposed to take lamotrigine. Patient has been started on intravenous Keppra, Ativan as needed for breakthrough seizures. I think at this point, considering that this patient is a little bit more awake, we are going to restart lamotrigine. That should not be a problem for him considering that this prescription with [facility] is 4 dollars for 60 tablets. Patient will be informed about it. We will continue with intravenous Keppra, and we will discontinue it once he is fully alert and oriented. 3. Elevated transaminitis secondary to alcohol consumption. This is mildly elevated. We will continue to monitor. 4. Medical noncompliance. As we mentioned before, patient is not taking his lamotrigine and he is supposed to. 5. Hyponatremia, most likely related to his beer potomania. Will continue with intravenous fluids. I think we can give it to him in small doses of Samsca, and we will go from there. 6. Disposition: We will continue to monitor this patient closely here in the intensive care unit. cc: Bello Armstrong MD MTDD
[2019-10-19] MEDS: LAMICTAL PO SCH ×2 (08:45→19:47)
[2019-10-19] MEDS: M.V.I.-12 10 ML, FOLIC ACID 1 MG, MAGNESIUM SULFATE 1 GM, THIAMINE 100 MG in NS 1,000 ML IV SCH (08:45)
[2019-10-19] MEDS: NS 1,000 ML IV SCH (15:31)
[2019-10-19] MEDS: ATIVAN IV PRN (19:42)
[2019-10-20] MEDS: LAMICTAL PO SCH ×3 (00:40→20:17)
[2019-10-20] MEDS: ATIVAN IV PRN ×3 (02:00→05:53)
[2019-10-20] MEDS: LIBRIUM PO SCH (03:36)
[2019-10-20] MEDS: NS 1,000 ML IV SCH ×2 (03:51→17:41)
[2019-10-20] MEDS: KEPPRA 500 MG in NS 100 ML IV SCH ×2 (05:54→17:41)
[2019-10-20 06:06] LABS: BASO# 0.02 X1000 (0.0-0.2); BASO% 0.4 % (0.0-0.8); EOS# 0.09 X1000 (0.0-0.7); EOS% 1.6 % (0.0-10.0); HEMATOCRIT 42.6 % (42.0-52.0); HEMOGLOBIN 14.3 g/dL (14.0-18.0); IMM GRAN# 0.02 X1000 (0.0-0.04); IMM GRAN% 0.4 % (0.0-0.5); LYMPH# 1.08 X1000 (1.2-3.4); LYMPH% 19.5 % (20.5-51.1); MCH 30.2 PG (27-31); MCHC 33.6 g/dL (33-37); MCV 90.1 FL (81-99); MONO# 1.04 X1000 (0.11-0.59); MONO% 18.7 % (1.7-9.3); NEUT% 59.4 % (42.2-75.2); PLT 153 X1000 (130-400); RBC 4.73 XMIL (4.7-6.1); RDW 17.8 % (11.5-14.5); WBC 5.55 X1000 (4.8-10.8)
[2019-10-20 06:35] LABS: AGAP 14; ALBUMIN 4.3 g/dL (3.5-5.0); BUN 3 mg/dL (8-22); CALCIUM 9.2 mg/dL (8.8-10.2); CHLORIDE 104 mmol/L (98-107); COSMO 274; CREATININE 0.8 mg/dL (0.7-1.2); ESTIMATED GFR > 60; GLUCOSE 96 mg/dL (70-104); PHOSPHORUS 3.7 mg/dL (2.7-4.5); POTASSIUM 4.2 mmol/L (3.5-5.1); SODIUM 139 mmol/L (136-145); TCO2 21 mmol/L (25-35)
[2019-10-20] MEDS ORDERED: ATIVAN IV PRN (07:47)
--- NOTE | 2019-10-20 08:09 | PROGRESS NOTE ---
DATE: 10/20/2019 SUBJECTIVE: As per nursing staff, this patient has been more agitated in the last 24 hours. Upon my examination this morning, he is completely confused and does not answer any questions to me. He is trying to get out of bed, became combative and belligerent. OBJECTIVE: Vital Signs: Temperature 98.2 degrees, heart rate 77, respiratory rate 14, blood pressure 149/78 and O2 saturation 95% on room air. General Examination: This is a 54-year-old male, lying in bed completely confused and combative with physical restraints placed. Cardiovascular exam: S1, S2 heard. No murmurs, gallops, or rubs. Regular rate and rhythm. Respiratory exam: Clear bilaterally to auscultation. No work of breathing or using accessory muscles. Abdomen: Soft, nontender to palpation. Bowel sounds present. No organomegaly. Extremities: No clubbing, cyanosis, or edema. Peripheral pulses present in both legs. Neurological exam: Patient is confused. Moves 4 extremities spontaneously. Very belligerent and combative. Of course, not oriented or able to answer any questions to me. LABORATORY DATA: White cell count 5.55, hemoglobin 14.3, hematocrit 42.6, platelets 153 with normal BMP. Phosphorus 3.7. ASSESSMENT AND PLAN: 1. Alcohol withdrawal. The patient is a heavy drinker. I think this condition is getting worse. So, we are going to hold any oral medication like Librium for this patient, and start him on Ativan drip considering that we were using a lot of Ativan pushes in the last 12 hours. We will continue with normal saline plus MVI. If the patient continues to be like this tomorrow, we will consider to change intravenous fluids; in this case, normal saline to Clinimix and lipids. 2. Seizures. Patient has not had any episodes of seizure while he is here. Apparently, there is a history of noncompliance to lamotrigine. Now, the patient is on Keppra intravenous and Ativan. Will continue to monitor. 3. Elevated transaminase secondary to alcohol consumption. Aware. We will continue to monitor. 4. Medical noncompliance. Aware. 5. Hyponatremia, resolved. That was most likely related to his beer potomania. 6. Disposition: We will continue to monitor this patient in the intensive care unit. Ativan drip is going to be started. cc: Bello Armstrong MD
[2019-10-20] MEDS: ATIVAN 20 MG in NS 190 ML IV SCH ×2 (08:38→17:40)
[2019-10-20] MEDS: M.V.I.-12 10 ML, FOLIC ACID 1 MG, MAGNESIUM SULFATE 1 GM, THIAMINE 100 MG in NS 1,000 ML IV SCH (10:12)
[2019-10-20 20:07] LABS: URINE SOURCE CATH
[2019-10-20 20:16] LABS: BILIRUBIN URINE NEGATIVE (NEGATIVE); BLOOD URINE NEGATIVE (NEGATIVE); COLOR YELLOW; GLUCOSE URINE NEGATIVE (NEGATIVE); KETONE URINE 20 mg/dL (NEGATIVE); LEUKOCYTES URINE NEGATIVE (NEGATIVE); NITRITE URINE NEGATIVE (NEGATIVE); PROTEIN URINE TRACE mg/dL (NEGATIVE); TURBIDITY URINE CLEAR (CLEAR); UROBILINOGEN URINE NORMAL (NORMAL)
[2019-10-20 20:19] LABS: UR EPITHELIAL CELLS <10 /HPF (<10); URINE BACTERIA NEGATIVE /HPF; URINE RBC <10 /HPF (<10); URINE WBC <10 /HPF (<10)
[2019-10-20 20:38] LABS: URINE CASTS NONE SEEN; URINE CRYSTALS NONE SEEN; URINE SMALL ROUND CELLS NONE SEEN; URINE YEAST NONE SEEN
[2019-10-20] MEDS ORDERED: APRESOLINE IV ONE (21:17)
[2019-10-21] MEDS: NS 1,000 ML IV SCH (03:30)
[2019-10-21 05:22] LABS: BASO# 0.02 X1000 (0.0-0.2); BASO% 0.2 % (0.0-0.8); EOS# 0.02 X1000 (0.0-0.7); EOS% 0.2 % (0.0-10.0); HEMATOCRIT 41.8 % (42.0-52.0); LYMPH% 9.8 % (20.5-51.1); MCH 30.4 PG (27-31); MCHC 33.5 g/dL (33-37); MCV 90.7 FL (81-99); MONO# 1.08 X1000 (0.11-0.59); MONO% 11.8 % (1.7-9.3); NEUT# 7.14 X1000 (1.4-6.5); PLT 163 X1000 (130-400); RBC 4.61 XMIL (4.7-6.1); RDW 17.6 % (11.5-14.5); WBC 9.16 X1000 (4.8-10.8)
[2019-10-21 05:26] LABS: AGAP 14; ALBUMIN 3.9 g/dL (3.5-5.0); BUN 3 mg/dL (8-22); CHLORIDE 99 mmol/L (98-107); COSMO 268; CREATININE 0.8 mg/dL (0.7-1.2); ESTIMATED GFR > 60; GLUCOSE 92 mg/dL (70-104); PHOSPHORUS 3.1 mg/dL (2.7-4.5); POTASSIUM 3.5 mmol/L (3.5-5.1); SODIUM 136 mmol/L (136-145); TCO2 23 mmol/L (25-35)
[2019-10-21] MEDS: KEPPRA 500 MG in NS 100 ML IV SCH ×2 (05:32→18:22)
[2019-10-21] MEDS: CLINIMIX E 4.25%-5% SOLUTION 1,000 ML IV SCH ×2 (05:44→15:06)
[2019-10-21] MEDS: LOPRESSOR IV SCH ×4 (05:44→23:20)
[2019-10-21] MEDS: LIPOSYN 20% 250 ML IV SCH (05:52)
--- NOTE | 2019-10-21 05:56 | PROGRESS NOTE ---
DATE: 10/21/2019 SUBJECTIVE: The patient has been more calmed down with Ativan drip. He continues to be confused, and overnight his heart rate has been elevated as well as blood pressure that has reached 180. He has received 1 dose of hydralazine and blood pressure is between 147 and 160, but is still tachycardic. OBJECTIVE: Vital Signs: Temperature is 98.7 degrees, heart rate 115, respiratory rate 33, blood pressure 166/102, O2 saturation 95% on room air. General: This is a 54-year-old male, lying in bed, sleepy, in no acute distress. Cardiovascular: S1, S2 heard. No murmurs, gallops, or rubs. Regular rate and rhythm. Respiratory: Clear bilaterally to auscultation. No work of breathing or using accessory muscles. Abdomen: Soft. Apparently nontender to palpation. Bowel sounds present. No organomegaly. Extremities: No clubbing, cyanosis, or edema. Peripheral pulses present in both legs. Neurologic: The patient is sleepy, does not follow commands. LABORATORY DATA: White cell count 9.6, hemoglobin 14.0, hematocrit 41.8, platelets 163,000. BMP is completely normal today. ASSESSMENT AND PLAN: 1. Alcohol withdrawal. The patient was started yesterday on Ativan drip and since then he is definitely less combative and agitated. He continues to be confused. We will continue to monitor this patient closely in the intensive care unit. We did not need to provide him any Ativan pushes on top of the drip. We will continue to monitor. 2. Hypertension. The patient, of course, because of condition #1, has been having elevated blood pressure and also tachycardic so at this point, we are going to start metoprolol 5 mg q.6 hours as scheduled, and we will see if we need to increase the dose. 3. Seizures. The patient has not had any episodes of seizures here in the hospital. Continue to monitor. 4. Elevated transaminase secondary to alcohol consumption. Aware. We have not checked LFTs today, we will check it tomorrow. We will continue to monitor. 5. Medical noncompliance. Aware. 6. Hyponatremia. Resolved. 7. Nutritional status. I do not think this patient will be able to eat so at this point, I will change fluids to Clinimix and lipids and we will continue to monitor. We will also provide thiamine IV as well. DISPOSITION: We will continue to monitor this patient closely here in the intensive care unit. cc: Bello Armstrong MD
--- NOTE | 2019-10-21 07:09 | EKG Report ---
Test Performed on : 10/20/2019 10:55:14 PM Test Reason : ICU. NO EKG ORDER FOR MUSE Blood Pressure : / mmHG Vent. Rate : 121 BPM Atrial Rate : 121 BPM P-R Int : 176 ms QRS Dur : 082 ms QT Int : 304 ms P-R-T Axes : 076 -30 080 degrees QTc Int : 431 ms Sinus tachycardia. Left axis deviation Minimal voltage criteria for LVH, may be normal variant Abnormal ECG When compared with ECG of 24-SEP-2019 06:39, No significant change was found Confirmed by Jose Patricio MD ([id number]) on 10/22/2019 2:15:01 PM
[2019-10-21] MEDS: THIAMINE 100 MG in NS 50 ML IV SCH (07:42)
[2019-10-21] MEDS: LAMICTAL PO SCH ×2 (08:52→20:41)
[2019-10-21] MEDS: ATIVAN 20 MG in NS 190 ML IV SCH (13:47)
[2019-10-21] MEDS: OFIRMEV 1000 MG/ISOTONIC SOLN 1,000 MG/100 ML BOTTLE IV PRN (15:05)
[2019-10-22] MEDS: CLINIMIX E 4.25%-5% SOLUTION 1,000 ML IV SCH ×4 (01:48→21:10)
[2019-10-22] MEDS: KEPPRA 500 MG in NS 100 ML IV SCH ×2 (05:40→17:34)
[2019-10-22] MEDS: LOPRESSOR IV SCH (05:41)
[2019-10-22] MEDS: LIPOSYN 20% 250 ML IV SCH (06:31)
[2019-10-22] MEDS: THIAMINE 100 MG in NS 50 ML IV SCH (06:31)
[2019-10-22] MEDS: LAMICTAL PO SCH ×2 (08:09→20:22)
[2019-10-22 09:23] LABS: BASO# 0.02 X1000 (0.0-0.2); BASO% 0.1 % (0.0-0.8); EOS# 0.13 X1000 (0.0-0.7); EOS% 0.9 % (0.0-10.0); HEMATOCRIT 38.5 % (42.0-52.0); HEMOGLOBIN 12.9 g/dL (14.0-18.0); IMM GRAN# 0.08 X1000 (0.0-0.04); IMM GRAN% 0.6 % (0.0-0.5); LYMPH# 1.27 X1000 (1.2-3.4); LYMPH% 9.1 % (20.5-51.1); MCH 30.8 PG (27-31); MCHC 33.5 g/dL (33-37); MCV 91.9 FL (81-99); MONO# 1.46 X1000 (0.11-0.59); MONO% 10.4 % (1.7-9.3); NEUT# 11.07 X1000 (1.4-6.5); NEUT% 78.9 % (42.2-75.2); PLT 140 X1000 (130-400); RBC 4.19 XMIL (4.7-6.1); RDW 17.4 % (11.5-14.5); WBC 14.03 X1000 (4.8-10.8)
[2019-10-22 09:48] LABS: AGAP 15; ALBUMIN 3.6 g/dL (3.5-5.0); BUN 17 mg/dL (8-22); CALCIUM 8.9 mg/dL (8.8-10.2); CHLORIDE 97 mmol/L (98-107); COSMO 266; CREATININE 0.9 mg/dL (0.7-1.2); ESTIMATED GFR > 60; GLUCOSE 206 mg/dL (70-104); PHOSPHORUS 3.8 mg/dL (2.7-4.5); POTASSIUM 3.6 mmol/L (3.5-5.1); SODIUM 129 mmol/L (136-145); TCO2 17 mmol/L (25-35)
[2019-10-22] MEDS: OFIRMEV 1000 MG/ISOTONIC SOLN 1,000 MG/100 ML BOTTLE IV PRN (11:25)
[2019-10-22 14:40] LABS: URINE SOURCE CATH
--- NOTE | 2019-10-22 14:49 | Diag Imaging Result Doc PS360 ---
EXAM: CHEST-PORTABLE HISTORY: leukocytosis, cough. TECHNIQUE: Single view COMPARISON: 09/25/2019 FINDINGS: The lungs are well expanded. The heart is not enlarged. The vessels are not distended. There are no infiltrates. No effusion identified. There are old rib fractures. IMPRESSION: No pneumonia Electronically signed by Calixto Montoya 10/22/2019 2:47 PM
[2019-10-22 14:52] LABS: BILIRUBIN URINE NEGATIVE (NEGATIVE); BLOOD URINE TRACE (NEGATIVE); COLOR YELLOW; GLUCOSE URINE NEGATIVE (NEGATIVE); KETONE URINE NEGATIVE (NEGATIVE); LEUKOCYTES URINE MODERATE (NEGATIVE); NITRITE URINE NEGATIVE (NEGATIVE); PH URINE 6.5; PROTEIN URINE TRACE mg/dL (NEGATIVE); SP GRAVITY URINE 1.014; TURBIDITY URINE CLEAR (CLEAR); UROBILINOGEN URINE 8 mg/dL (NORMAL)
--- NOTE | 2019-10-22 14:55 | PROGRESS NOTE ---
DATE: 10/22/2019 INTERVAL HISTORY: The patient is waking up well. Significantly less agitated. A couple of low- grade fevers overnight up to 100.5. The patient is denying any increased cough or other respiratory symptoms currently. Complaining only of mild tremulousness and increased appetite. REVIEW OF SYSTEMS: A twelve-point review of systems is negative except as per interval history. LABORATORY DATA: WBC 14.0, hemoglobin 12.9, hematocrit 38.5, platelets 140,000. Sodium 129, potassium 3.6, BUN 17, creatinine 0.9, glucose 206. Most recent lactate 1.1. PHYSICAL EXAMINATION: Vital Signs: Temperature max 100.5 degrees, pulse 86, respirations 22, blood pressure 117/74, O2 saturation is 93% on room air. General: No acute distress. Chronically ill appearing. HEENT: Normocephalic, atraumatic. No jaundice noted. No cervical adenopathy. Cardiovascular: Currently regular rate and rhythm. No murmurs noted. Pulmonary: Clear to auscultation bilaterally aside from minimal scattered rhonchi that clear with cough. Abdomen: Soft, nontender, nondistended. Bowel sounds positive. Extremities: Peripheral pulses intact. No clubbing or cyanosis. Neurologic: Cranial nerves grossly intact. No focal deficits. Minimal tremulousness noted. Psychiatric: The patient's speech is a little slow but appropriate. Answers orientation questions appropriately. Cooperative. Follows commands. Genitourinary: Jurado catheter in place. ASSESSMENT AND PLAN: 1. Alcohol abuse and withdrawal. The patient had to be started on a drip a couple days ago but off the drip currently. Very slightly tremulous, but no overt DTs or severe withdrawal noted currently. P.r.n. Ativan available, but we will try not to start him on anything else scheduled if possible. 2. Fever and leukocytosis. The patient with low-grade fever overnight and increased white count. Exact source is not entirely certain. The patient is denying any dysuria, cough, dyspnea or other symptoms that would point us toward a clear source. It may be simply atelectasis, but we will get a chest x-ray and make sure he is not trying to get a pneumonia. 3. Hypertension. The patient's elevated blood pressure is likely due to withdrawal. His blood pressure is actually running on the low normal side today. We will discontinue metoprolol and monitor. 4. History of seizure disorder. Uncertain if the patient has a true seizure disorder or if he has had alcohol withdrawal seizures in the past. No seizures noted since he has been here. We will continue his home lamotrigine. 5. Alcoholic fatty liver disease with mildly elevated LFTs and bilirubin stable on last check. The patient has been counseled on cessation. 6. Hyponatremia, worse than yesterday, but roughly stable from 2 to 3 days ago. Still markedly improved from admission. We will monitor but unless it worsens from where it is now no need for further intervention. 7. Nutritional status. Initially started on Clinimix, but his mental status is improving quite a bit. We will see if we can feed him and advance diet as tolerated. If we can get him on a reasonable diet then we will stop the Clinimix. 8. Disposition. The patient appears to be stable for the floor. If no source of infection is identified and he has no further fevers he may be able to be discharged tomorrow. If some source of infection is found he may have to be here for another couple days. cc: Bello Armstrong MD
[2019-10-22 15:14] LABS: UR EPITHELIAL CELLS <10 /HPF (<10); URINE BACTERIA NEGATIVE /HPF; URINE RBC <10 /HPF (<10)
[2019-10-22 15:15] LABS: URINE CASTS NONE SEEN; URINE CRYSTALS NONE SEEN; URINE YEAST NONE SEEN
[2019-10-23] MEDS: THIAMINE 100 MG in NS 50 ML IV SCH (04:58)
[2019-10-23] MEDS: LIPOSYN 20% 250 ML IV SCH (05:00)
[2019-10-23] MEDS: KEPPRA 500 MG in NS 100 ML IV SCH ×2 (05:35→17:31)
[2019-10-23] MEDS: CLINIMIX E 4.25%-5% SOLUTION 1,000 ML IV SCH (06:54)
[2019-10-23] MEDS: LAMICTAL PO SCH ×2 (08:03→22:00)
[2019-10-23] MEDS: ROCEPHIN 1 GM in NS 50 ML IV SCH (09:04)
--- NOTE | 2019-10-23 09:08 | Diag Imaging Result Doc PS360 ---
CHEST-PORTABLE - 10/23/2019 INDICATION: cough, ? aspiration, low grade fever. COMPARISON: 10/22/2019 FINDINGS: The lungs are normally expanded and clear. Heart size and mediastinal contours are normal. No pneumothorax or pleural effusion. IMPRESSION: Negative exam. Electronically signed by Salas Dunn 10/23/2019 9:06 AM
[2019-10-23 09:15] LABS: BASO# 0.02 X1000 (0.0-0.2); BASO% 0.3 % (0.0-0.8); EOS# 0.24 X1000 (0.0-0.7); EOS% 3.3 % (0.0-10.0); HEMATOCRIT 37.5 % (42.0-52.0); HEMOGLOBIN 12.4 g/dL (14.0-18.0); LYMPH# 1.17 X1000 (1.2-3.4); MCH 30.5 PG (27-31); MCHC 33.1 g/dL (33-37); MCV 92.1 FL (81-99); MONO# 0.59 X1000 (0.11-0.59); MPV 10.3 FL (7.4-10.4); NEUT# 5.31 X1000 (1.4-6.5); NEUT% 72.4 % (42.2-75.2); PLT 149 X1000 (130-400); RBC 4.07 XMIL (4.7-6.1); WBC 7.33 X1000 (4.8-10.8)
[2019-10-23 09:26] LABS: AGAP 14; CHLORIDE 99 mmol/L (98-107); GLUCOSE 152 mg/dL (70-104); POTASSIUM 3.9 mmol/L (3.5-5.1); SODIUM 130 mmol/L (136-145); TCO2 17 mmol/L (25-35)
[2019-10-23 09:27] LABS: BUN 12 mg/dL (8-22); CALCIUM 9.1 mg/dL (8.8-10.2); COSMO 264; CREATININE 0.7 mg/dL (0.7-1.2); ESTIMATED GFR > 60
[2019-10-23] MEDS: FLOMAX PO SCH (10:50)
--- NOTE | 2019-10-23 15:15 | PROGRESS NOTE ---
DATE: 10/23/2019 INTERVAL HISTORY: Patient with no further tremulousness. He has done well so far on a liquid diet. No acute events overnight. Removed Jurado yesterday but patient had retention issues later in the afternoon so the Jurado had to be replaced. He has done well with that since. REVIEW OF SYSTEMS: Twelve point review of systems negative except as per interval history. LABS: WBC 7.3, hemoglobin 12.4, hematocrit 37.5, platelets 149,000. Sodium 130, potassium 3.9, BUN 12, creatinine 0.7, glucose 152. Chest x-ray x2 with no acute process. VITAL SIGNS: T-max 99.2 degrees, pulse 88, respirations 15, blood pressure 115/65, O2 saturation 97% on room air. PHYSICAL EXAMINATION: General: No acute distress. Vitals: As above. HEENT: Normocephalic, atraumatic. Moist mucous membranes. Cardiovascular: Regular rate and rhythm. No murmurs noted. Pulmonary: Clear to auscultation bilaterally. No wheezing, rales, or rhonchi currently. Abdomen: Soft, nontender, nondistended. Bowel sounds positive. Extremities: Peripheral pulses intact. No clubbing or cyanosis. Neurologic: Cranial nerves grossly intact. No focal deficits identified. No further tremulousness. Psychiatric: Awake, alert, and oriented x3 currently. : Jurado catheter in place. ASSESSMENT AND PLAN: 1. Alcohol abuse and withdrawal. On the , the patient had to be started on an Ativan drip but has been off that for a couple days and doing well. Appears to be over the worst of his withdrawal. 2. Fever and leukocytosis. Patient with low-grade fever and leukocytosis yesterday. Urinalysis was suggestive of a urinary tract infection. No other sign of infection was found so he was started on Rocephin. Leukocytosis now resolved. Monitor. 3. Hypertension, may have been due to withdrawal. Currently off of antihypertensives and doing well. Continue to monitor. 4. History of seizure disorder. No seizures here. Continue home lamotrigine. 5. Alcoholic fatty liver disease, stable. Monitor. 6. Hyponatremia, roughly stable. Continue to monitor labs. 7. Urinary retention, likely benign prostatic hypertrophy. We will go and start him on Flomax and likely try another voiding trial tomorrow. 8. Nutritional status. The patient was initially started on Clinimix. The patient is doing quite well on a liquid diet. We will advance him to a regular diet today and if he does well with that, we will discontinue Clinimix. 9. Disposition. The patient should be able to go to the floor today. We will try to take his Jurado out tomorrow. If he has no further fevers and does well otherwise, then hopefully will be able to discharge home tomorrow. cc: Bello Armstrong MD
[2019-10-24] MEDS: OFIRMEV 1000 MG/ISOTONIC SOLN 1,000 MG/100 ML BOTTLE IV PRN (04:34)
[2019-10-24] MEDS: THIAMINE 100 MG in NS 50 ML IV SCH (05:02)
[2019-10-24 05:09] LABS: BASO# 0.04 X1000 (0.0-0.2); BASO% 0.6 % (0.0-0.8); EOS# 0.33 X1000 (0.0-0.7); HEMATOCRIT 35.7 % (42.0-52.0); HEMOGLOBIN 11.8 g/dL (14.0-18.0); IMM GRAN# 0.02 X1000 (0.0-0.04); IMM GRAN% 0.3 % (0.0-0.5); LYMPH# 1.58 X1000 (1.2-3.4); LYMPH% 23.9 % (20.5-51.1); MCH 30.3 PG (27-31); MCHC 33.1 g/dL (33-37); MCV 91.5 FL (81-99); MONO# 0.94 X1000 (0.11-0.59); MONO% 14.2 % (1.7-9.3); MPV 10.1 FL (7.4-10.4); NEUT# 3.71 X1000 (1.4-6.5); PLT 187 X1000 (130-400); RDW 16.7 % (11.5-14.5); WBC 6.62 X1000 (4.8-10.8)
[2019-10-24 05:28] LABS: AGAP 12; BUN 8 mg/dL (8-22); CALCIUM 9.2 mg/dL (8.8-10.2); CHLORIDE 94 mmol/L (98-107); COSMO 257; CREATININE 0.8 mg/dL (0.7-1.2); ESTIMATED GFR > 60; GLUCOSE 96 mg/dL (70-104); POTASSIUM 4.1 mmol/L (3.5-5.1); SODIUM 129 mmol/L (136-145); TCO2 23 mmol/L (25-35)
[2019-10-24] MEDS: KEPPRA 500 MG in NS 100 ML IV SCH (05:42)
[2019-10-24] MEDS: ROCEPHIN 1 GM in NS 50 ML IV SCH (09:52)
[2019-10-24] MEDS: LAMICTAL PO SCH (09:52)
[2019-10-24] MEDS: FLOMAX PO SCH (09:52)
[2019-10-24] MEDS ORDERED: ROCEPHIN 1 GM in NS 50 ML IV ONE (11:36)
[2019-10-24 16:31] VITALS: BP 115/71
== END 2019-10-24 21:15 | disposition home or self-care (01) | DRG 897 ==
LOC: P.ED 09:31 → P.EDIPHOLD 13:26 → SUATTDRO 13:26 → 1N 10-23 12:38
PROVIDERS: ATTEND Internal Medicine